=== PATIENT | female | born 1990 | race Caucasian/White ===

== ENCOUNTER 2018-02-17 08:59 | Emergency (ER) | payer MEDICAID, SELFPAY ==
[2018-02-17 09:01] VITALS: BP 132/86; PULSE 98; RESP 17; TEMP 36.1; O2SAT 95; BMI 43.0
--- NOTE | 2018-02-17 09:32 | ED.VISSUMM ---
- ER Visit Summary Date of Service: 02/17/18 Chief Complaint: Seizure-like activity History of Present Illness: The patient is a 27 F who presents for seizure-like activity that occurred during the night. Patient states she woke up from sleep at 2 AM and rolled over to look at her clock. She then had sudden flailing of all of her arms and legs that occurred for about 1 minute. She was awake during the entire episode. She is now sore in her extremities and the neck to the mid back. She has been on carbamazepine for 3 weeks for bipolar disorder. She spoke with her prescribing doctor this morning who told her to discontinue it. She denies fever, vision changes, seizure history. History of asthma, bipolar disorder, PTSD and depression. Physical Examination: Vital signs: afebrile, hemodynamically stable, no hypoxia on room air General: well nourished, well developed, in no distress Skin: warm, dry, no rash, no pallor HEENT: normocephalic and atraumatic; PERRL, EOMI, moist mucous membranes Cardiovascular: regular rate and rhythm without murmurs, no peripheral edema, 2+ pulses all distal extremities Respiratory: No increased work of breathing, lungs are clear to auscultation bilaterally, no rales, rhonchi or wheezing Abdominal: Abdomen is soft, nontender with normoactive bowel sounds, no guarding or rebound, no masses MSK: Moves all extremities, no deformities, normal strength, diffuse tenderness to the muscles of the extremities Neuro: Awake and alert, oriented ?4. No facial droop, sensation and motor function intact and symmetric Test Results: Abnormal Lab Results 02/17/18 10:15 Sodium 142 Potassium 4.1 Chloride 107 Carbon Dioxide 29.0 Anion Gap 6 BUN 12 Creatinine 0.73 Estim Creat Clear Calc 108.37 Est GFR (MDRD) Af Amer 122 Est GFR (MDRD) Non-Af 101 BUN/Creatinine Ratio 16.4 Glucose 74 Calcium 8.8 Magnesium 2.2 Total Creatine Kinase 45 Emergency Department Course and Treatment: Patient was given naproxen for muscle discomfort. Workup performed to look for any electrolyte derangements that might contribute to muscle spasms. None noted including a normal magnesium. Creatine kinase was normal, thus this is unlikely to be diffuse myositis. Patient will stop the carbamazepine as instructed by her doctor. She was given a prescription for naproxen. Patient discharged home. Treatment Plan: [] Disposition: [] Impression: Adverse medication reaction This note was generated with [employer] dictation software. It may contain incorrect words, spelling, and punctuation that were not noted in review of the chart prior to signing ED Disposition - Plan for ED Patient: Disposition: Home or Assisted Living Chief Complaint: Seizure Instructions: ED Drug React Adverse Other Prescriptions: Naproxen [Naprosyn] 500 mg PO BID PRN #20 tab Referrals: Care Physician,No Primary [NON-STAFF] - Additional Instructions: Please follow-up with your doctor that prescribes your carbamazepine to discuss alternatives. Stop taking the medication as your doctor advised. Drink plenty of fluids to stay hydrated. You may use the naproxen as needed for muscle soreness. If you have any worsening of your condition or any new concerning symptoms, please return immediately to the emergency department for another evaluation.
[2018-02-17 10:41] LABS: Anion Gap 6 (5-15); BUN 12 mg/dL (7-18); BUN/Creat Ratio 16.4 RATIO (10-20); CPK Total, Creatine Kinase 45 U/L (26-192); Calcium,Total 8.8 mg/dL (8.5-10.1); Chloride 107 mmol/L (98-107); Creatinine, Serum 0.73 mg/dL (0.55-1.02); EST Glomerular Filtration Rate 101 mL/min (>60); Est Glom Filt Rate - Afr Amer 122 mL/min (>60); Estimated Creatinine Clearance 108.37 ml/min; Glucose 74 mg/dL (74-106); Magnesium 2.2 mg/dL (1.6-2.6); Potassium 4.1 mmol/L (3.5-5.1); Sodium Level 142 mmol/L (136-145)
--- NOTE | 2018-02-17 10:47 | ED.DEP ---
ED Disposition - Plan for ED Patient: Disposition: Home or Assisted Living Chief Complaint: Seizure Instructions: ED Drug React Adverse Other Prescriptions: Naproxen [Naprosyn] 500 mg PO BID PRN #20 tab Referrals: Care Physician,No Primary [NON-STAFF] - Additional Instructions: Please follow-up with your doctor that prescribes your carbamazepine to discuss alternatives. Stop taking the medication as your doctor advised. Drink plenty of fluids to stay hydrated. You may use the naproxen as needed for muscle soreness. If you have any worsening of your condition or any new concerning symptoms, please return immediately to the emergency department for another evaluation.
[2018-02-17] MEDS: Naproxen 500 MG Tablet PO (10:52)
== END 2018-02-17 10:54 | disposition home or self-care (01) ==
PROVIDERS: Emergency Provider Emergency Medicine; Family Provider Family Medicine; PCP Family Medicine
DX: T50.995A Adverse effect of other drugs, medicaments and biological substances, initial encounter (principal); Y92.9 Unspecified place or not applicable; M79.1 Myalgia; R56.9 Unspecified convulsions
CPT/HCPCS: 36415; 80048; 82550; 83735; 99283

== ENCOUNTER 2018-03-10 21:50 | Emergency (ER) | payer MEDICAID, SELFPAY ==
[2018-03-10 21:51] VITALS: BP 111/61; PULSE 106; RESP 17; TEMP 36.2; O2SAT 96; BMI 97.2
--- NOTE | 2018-03-10 22:14 | RAD_ITS ---
STUDY: X-RAY - RIGHT FOOT CLINICAL: Female, 27 years old. Injury to the fifth toe. TECHNIQUE: 3 view(s) of the foot. COMPARISON: None. FINDINGS: Normal talus, calcaneus, and tarsal bones. Normal visualized subtalar, talonavicular, calcaneocuboid, tarsal and tarsometatarsal articulations. Normal metatarsi. Normal metatarsophalangeal joint of the great toe. Normal tibial and fibular sesamoid bones. Normal interphalangeal joint of the great toe. Normal phalanges of the great toe. Normal second through fifth metatarsophalangeal joints. Normal interphalangeal joints of the lesser toes. There is a displaced fracture of the fifth proximal phalanx. Otherwise normal phalanges of the lesser toes. The soft tissue structures are unremarkable. RAD/Foot min 3 Views IMPRESSION: Displaced fracture of the fifth proximal phalanx. Electronically Signed: Nelson Mackenzie DO at 23:06 EDT Tel [phone], Service support ,
--- NOTE | 2018-03-10 22:15 | ED.VIS.GEN ---
History of Present Illness Chief Complaint: Lower Extremity Injury Informant: Patient Onset: Today - JPTA Context: Sudden Onset - accidentally caught heavy shoe w/ her right 5th toe as she was walking by it Timing: Continuous Quality: pain Location: right 5th toe Current Severity: Severe Maximum Severity: Severe Worsened by: palpation, walking Relieved by: remaining still Associated Symptoms: no other injury, no neuro sx Past Medical History - Allergies and Home Meds Allergies/Adverse Reactions: Allergies adhesive Allergy (Verified 03/10/18 21:53) Other Primary Care Physician: Damari Pabon MD [Primary Care Provider] - Past Medical History: None Surgical History: no surgical history Lives: Spouse/ Significant Other Smoking Status: Never smoker Review of Systems Musculoskeletal: Reports: Extremity Pain - right foot pain Skin: Denies: Wounds Neurological: Denies: Weakness, Parasthesia Physical Exam Vital Signs/Narrative: Vital Signs Temp Pulse Resp BP Pulse Ox 03/10/18 21:51 97.2 F L 106 H 17 111/61 96 Inital Vital Signs reviewed: Yes General: Well nourished, Well developed, - - nad Head: Normocephalic, Atraumatic Extremities: Tenderness - w/ deformity right 5th toe -- abducted out of midline, no local opening in skin Skin: Normal color, No rash Neurological: Alert, Oriented x3, Cranial nerves II-XII grossly intact, Normal Strength, Normal Sensation Psychological: Normal affect Diagnostic/Tx/Re-eval Clinical Impression(s) from Imaging Studies Foot X-Ray 03/10/18 22:14 IMPRESSION: Displaced fracture of the fifth proximal phalanx. Electronically Signed: Nelson Mackenzie DO at 23:06 EDT Tel [phone], Service support , - Medical Decision Making X-ray shows displaced proximal phalanx fracture of the right fifth toe. She was pretreated with a [employer], declined digital block, I then distracted the toe as we performed shanita taping with nursing assistance. She tolerated well. Will be given a postop shoe and podiatry follow-up. ED Disposition - Plan for ED Patient: Disposition: Home or Assisted Living Chief Complaint: Lower Extremity Injury Diagnosis: Closed fracture of phalanx of right fifth toe Instructions: ED Fx Toe Closed Prescriptions: Hydrocodone Bitart/Apap 5-325 [[employer] 5MG-325MG] 1 tab PO Q4H PRN PRN 2 Days #10 tab PRN Reason: Pain Referrals: Rola Angeles DPM [STAFF PHYSICIAN] - 3-5 Days
--- NOTE | 2018-03-10 22:18 | ED.DCSUM_ITS ---
History of Present Illness Chief Complaint: Lower Extremity Injury Informant: Patient Onset: Today - JPTA Context: Sudden Onset - accidentally caught heavy shoe w/ her right 5th toe as she was walking by it Timing: Continuous Quality: pain Location: right 5th toe Current Severity: Severe Maximum Severity: Severe Worsened by: palpation, walking Relieved by: remaining still Associated Symptoms: no other injury, no neuro sx Past Medical History - Allergies and Home Meds Allergies/Adverse Reactions: Allergies adhesive Allergy (Verified 03/10/18 21:53) Other Primary Care Physician: Damari Pabon MD [Primary Care Provider] - Past Medical History: None Surgical History: no surgical history Lives: Spouse/ Significant Other Smoking Status: Never smoker Review of Systems Musculoskeletal: Reports: Extremity Pain - right foot pain Skin: Denies: Wounds Neurological: Denies: Weakness, Parasthesia Physical Exam Vital Signs/Narrative: Vital Signs Temp Pulse Resp BP Pulse Ox 03/10/18 21:51 97.2 F L 106 H 17 111/61 96 Inital Vital Signs reviewed: Yes General: Well nourished, Well developed, - - nad Head: Normocephalic, Atraumatic Extremities: Tenderness - w/ deformity right 5th toe -- abducted out of midline , no local opening in skin Skin: Normal color, No rash Neurological: Alert, Oriented x3, Cranial nerves II-XII grossly intact, Normal Strength, Normal Sensation Psychological: Normal affect Diagnostic/Tx/Re-eval Clinical Impression(s) from Imaging Studies Foot X-Ray 03/10/18 22:14 IMPRESSION: Displaced fracture of the fifth proximal phalanx. Electronically Signed: Nelson Mackenzie DO at 23:06 EDT Tel [phone], Service support , - Medical Decision Making X-ray shows displaced proximal phalanx fracture of the right fifth toe. She was pretreated with a [place], declined digital block, I then distracted the toe as we performed shanita taping with nursing assistance. She tolerated well. Will be given a postop shoe and podiatry follow-up. ED Disposition - Plan for ED Patient: Disposition: Home or Assisted Living Chief Complaint: Lower Extremity Injury Diagnosis: Closed fracture of phalanx of right fifth toe Instructions: ED Fx Toe Closed Prescriptions: Hydrocodone Bitart/Apap 5-325 [[place] 5MG-325MG] 1 tab PO Q4H PRN PRN 2 Days #10 tab PRN Reason: Pain Referrals: Rola Angeles DPM [STAFF PHYSICIAN] - 3-5 Days
[2018-03-10] MEDS: HYDROcodone Bitartrate/Apap 5/325 Tablet PO (22:31)
[2018-03-10 23:37] VITALS: BP 106/78; PULSE 89; RESP 18; O2SAT 97
== END 2018-03-10 23:39 | disposition home or self-care (01) ==
PROVIDERS: Emergency Provider Emergency Medicine; Family Provider Family Medicine; PCP Family Medicine
DX: S92.911A Unspecified fracture of right toe(s), initial encounter for closed fracture (principal); W23.0XXA Caught, crushed, jammed, or pinched between moving objects, initial encounter; Y93.9 Activity, unspecified; Y92.89 Other specified places as the place of occurrence of the external cause; Y99.9 Unspecified external cause status
CPT/HCPCS: 73630; 99283

== ENCOUNTER 2018-05-05 15:50 | Emergency (ER) | payer MEDICAID, SELFPAY ==
[2018-05-05 15:50] VITALS: BP 162/83; PULSE 99; RESP 18; TEMP 37.1; O2SAT 95; BMI 43.5
[2018-05-05 16:17] VITALS: BP 123/78; PULSE 92; RESP 18; O2SAT 96
[2018-05-05] MEDS: Dicyclomine 10 MG Capsule 20 MG PO (16:31)
[2018-05-05] MEDS: Loperamide 2 MG Capsule 4 MG PO (16:31)
[2018-05-05] MEDS: 0.9% Normal Saline 1,000 ML 1000 ML IV (16:32)
[2018-05-05 17:07] LABS: Anion Gap 5 (5-15); BUN 10 mg/dL (7-18); BUN/Creat Ratio 11.5 RATIO (10-20); Calcium,Total 8.3 mg/dL (8.5-10.1); Chloride 105 mmol/L (98-107); Creatinine, Serum 0.87 mg/dL (0.55-1.02); EST Glomerular Filtration Rate 82 mL/min (>60); Est Glom Filt Rate - Afr Amer 100 mL/min (>60); Estimated Creatinine Clearance 90.93 ml/min; Glucose 95 mg/dL (74-106); Potassium 3.7 mmol/L (3.5-5.1); Sodium Level 138 mmol/L (136-145)
[2018-05-05 18:24] VITALS: BP 132/78; PULSE 76; RESP 16; O2SAT 98
--- NOTE | 2018-05-05 18:28 | ED.DCSUM_ITS ---
- ER Visit Summary Date of Service: 05/05/18 Chief Complaint: Diffuse abdominal pain with diarrhea for the past 2 days. History of Present Illness: The patient is a 27 F who states the pain is sharp. The pain is diffuse but she reports the pain is worse in the epigastric and left side. She denies any blood in her stool. She noted mucus today. There is no history of inflammatory bowel disorder. She denies fever, chills night sweats. Denies weight gain or weight loss. She denies cardiac respiratory symptoms. She denies dysuria, frequency, urgency or hematuria. She reports decreased urine output. She has no other complaints. Physical Examination: Vital signs were noted and blood pressure slightly elevated 123/78. Head is atraumatic normocephalic. Pupils are equal round reactive. Extraocular muscles are intact. TMs are pearly white with landmarks noted. Nares patent with no drainage. Posterior pharynx without erythema or exudate. Uvula is midline. There is no dysphonia or dysphasia. Trachea is midline. There is no stridor with auscultation of the neck. Heart is regular without murmur, gallop or rub. S1 and S2 are normal. Lungs are clear to auscultation with good movement of air bilaterally. Abdomen is remarkable pain on palpation to light touch and resting my stethoscope on her abdomen. Bowel sounds are normal. The remainder of exam is unremarkable. Please read written note. Test Results: None Emergency Department Course and Treatment: IV normal saline wide open ?1, 20 mrem of Bentyl and 4 mg of Imodium. Patient was reassessed at 1820. She is sitting up no longer crying. She has had no diarrhea during her stay. She states the pain is better. Treatment Plan: Prescription for Bentyl and Imodium Disposition: Discharged home in stable improved condition Impression: Abdominal pain with diarrhea Mild dehydration This note was generated with [employer] dictation software. It may contain incorrect words, spelling, and punctuation that were not noted in review of the chart prior to signing ED Disposition - Plan for ED Patient: Disposition: Home or Assisted Living Chief Complaint: Abd Pain Prescriptions: Dicyclomine HCl [Bentyl] 20 mg PO TIDAC #20 cap Loperamide [Imodium] 2 mg PO UD #10 cap Referrals: Damari Pabon MD [Primary Care Provider] - 3-5 Days if not improving
--- NOTE | 2018-05-05 18:41 | ED.DCSUM_ITS ---
- ER Visit Summary Date of Service: 05/05/18 Chief Complaint: [] History of Present Illness: The patient is a 27 F [] Physical Examination: [] Test Results: [] Emergency Department Course and Treatment: [] Treatment Plan: [] Disposition: [] Impression: [] This note was generated with [employer] dictation software. It may contain incorrect words, spelling, and punctuation that were not noted in review of the chart prior to signing ED Disposition - Plan for ED Patient: Disposition: Home or Assisted Living Chief Complaint: Abd Pain Instructions: ED Diarrhea Viral Prescriptions: Dicyclomine HCl [Bentyl] 20 mg PO TIDAC #20 cap Loperamide [Imodium] 2 mg PO UD #10 cap Referrals: Damari Pabon MD [Primary Care Provider] - 3-5 Days if not improving
[2018-05-05 18:46] VITALS: BP 115/78; PULSE 89; RESP 16; O2SAT 99
== END 2018-05-05 18:49 | disposition home or self-care (01) ==
PROVIDERS: Emergency Provider Emergency Medicine; Family Provider Family Medicine; PCP Family Medicine
DX: R10.9 Unspecified abdominal pain (principal); R19.7 Diarrhea, unspecified; E86.0 Dehydration
CPT/HCPCS: 80048; 99284; J7030

== ENCOUNTER 2019-01-07 08:48 | Outpatient (RCR) | payer MEDICAID, SELFPAY ==
--- NOTE | 2019-01-07 10:51 | BH.COMM ---
Communication Note - Communication with Client Communication Note: Pt walked out of 2nd group and stated I don't think this program is for me. Met with her briefly to discuss concerns. She denies any suicidal ideations, plan, or intent. Denies any desire to be or fall asleep and not wake up. 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 Met with psychiatrist refer to his note for more information. No medication changes reported per pt. Contracts for safety. She stated that she will continue with [facility] on weekly basis. Thanked us for our time. Smiles at times and apologizes stating I just don't like being around people I guess. Nothing overwhelming occured. No poor interactions with staff or peers. Did not present as imminent danger to self due to no active suicidal ideations, plan, or intent. Future-oriented, protective factors, and verbally contract for safety. Will discharge pt from the program. Will follow up with her current outpatient providers.
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
--- NOTE | 2019-01-07 11:07 | BH.DS_ITS ---
Discharge Summary - Demographics Date of Admission:: 01/06/19 Discharge Date: 01/06/19 Presenting Problems at Admission:: Pt is a 29 year old female. Hx of PTSD, Bipolar, MDD, ADHD and Anxiety. No previous psychiatric admissions. Referred to [facility] by local [facility] support group. Reports significant anxiety, depression, and fleeting suicidal ideations for the past 2 years. Suicide attempt on 11/30/18 via OD. Disclosed this to her and vomitted up the pills. She did not seek medical attention. currently manages medications. Attends weekly sometime bi-weekly appointment at [facility] with psychiatrist and therapist. Denies active suicidal ideations, plan, or intent. Hx of two previous attempts. Long-standing fleeting suicidal ideations for the past 10 years. Protective factor is her daughter. Future-oriented. 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 Endorses increased sleep, anhedonia, isolation, avoidant behaviors, low energy, low motivation, hopelessness, and no pleasure in activities. Frequent panic attacks. Hx of trauma as a child. Denies HI or psychosis. Denies substance abuse. Discharge Diagnoses:: Persistent Depressive Disorder. PTSD by hx. ADHD by hx. Bipolar by hx Reason for Discharge:: Pt walked out of 2nd group and stated I don't think this program is for me. Met with her briefly to discuss concerns. She denies any suicidal ideations, plan, or intent. Denies any desire to be or fall asleep and not wake up. 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 Met with psychiatr ist refer to his note for more information. No medication changes reported per pt. Contracts for safety. She stated that she will continue with [facility] on weekly basis. Thanked us for our time. Smiles at times and apologizes stating I just don't like being around people I guess. Nothing overwhelming occured. No poor interactions with staff or peers. Did not present as imminent danger to self due to no active suicidal ideations, plan, or intent. Future-oriented, protective factors, and verbally contract for safety. Will discharge pt from the program. Will follow up with her current outpatient providers. - Treatment Progress During Treatment & Response: No progress noted. Poor response to treatment. Pt discharged usp through her first day. Stating I don't think groups are for me. Issues Still to be Addressed:: Depression, anxiety, fleeting suicidal ideations, poor sleep, anhedonia, isolative behaviors, avoidance, panic attacks, and feelings of hopelessness. Discharge Recommendations/Instructions:: Recommended that pt continue with IOP level of care, however pt declines. Pt will continue with [facility] were she sees Dr. Godoy and has a therapist. Pt meets with her therapist weekly with appointment for next week. Discharge Handout: Complete Discharge Handout with client on aftercare options and continuity of care.
--- NOTE | 2019-01-07 12:01 | BH.DR.ITP ---
Initial Treatment Plan - Patient Information Visit Information: ADMISSION DATE: 01/07/19 EXPECTED LOS: 4-6 weeks Diagnoses:: Persistent disorder; anxiety disorder unspecified; personality disorder - Problems/Symptoms Problem #1:: depression Symptom:: low mood, chronic suicidality; anhedonia, low energy Problem #2:: anxiety Symptom:: Becomes anxious interacting with people; low stress tolerance Problem #3:: personality disorder Symptom:: moodiness, anger problems; abandonment fears, impulsivity
== END 2019-01-07 14:08 | disposition home or self-care (01) ==
LOC: BHIOP 08:48
PROVIDERS: Family Provider Family Medicine; PCP Family Medicine; Referring Provider Psychiatry & Neurology Psychiatry; Visit Provider Psychiatry & Neurology Psychiatry
DX: F34.1 Dysthymic disorder (principal); F43.10 Post-traumatic stress disorder, unspecified; F90.9 Attention-deficit hyperactivity disorder, unspecified type; E66.9 Obesity, unspecified; F60.9 Personality disorder, unspecified; R45.851 Suicidal ideations; Z79.899 Other long term (current) drug therapy
CPT/HCPCS: 99204

== ENCOUNTER 2019-02-27 16:29 | Emergency (ER) | payer MEDICAID, SELFPAY ==
[2019-02-27 16:30] VITALS: BP 114/85; PULSE 98; RESP 16; TEMP 36.4; O2SAT 95; BMI 49.0
--- NOTE | 2019-02-27 17:12 | ED.DCSUM_ITS ---
History of Present Illness Chief Complaint: Suicidal Detail of Chief Complaint: Depression, suicidal ideation Informant: Patient, Significant Other Onset: - - Long-standing, but worsened recently. Current Severity: Mild Maximum Severity: Moderate Worsened by: Situational factors - Financial and family stressors Associated Symptoms: Depressed, Suicidal Thoughts Specific plan (suicidal thought): Overdose on pills Narrative: Patient presents with her with suicidal ideation. She states she has had long-standing suicidal thoughts since the age of 14. She has been seen by a counselor and P[facility], but has not been following up recently. She has had several increased stressors recently. Patient states today she had several pill bottles in her hand. She threw them at her significant other asking him to put them away where she could not get to them because she could not trust herself with him. He brought her to the emergency room for further treatment. Past Medical History - Allergies and Home Meds Allergies/Adverse Reactions: Allergies adhesive Allergy (Verified 02/27/19 16:30) Other Primary Care Physician: Damari Pabon MD [Primary Care Provider] - Prior records reviewed: Yes Past Medical History: - - Reviewed Surgical History: no surgical history Lives: Spouse/ Significant Other Smoking Status: Never smoker Drugs: None Review of Systems General: Denies: Chills, Fever ENT: Denies: Bilateral ear pain Cardiovascular: Denies: Chest pain Respiratory: Denies: Dyspnea, Cough Gastrointestinal: Denies: Abdominal pain, Nausea, Vomiting Genitourinary: Denies: Dysuria Musculoskeletal: Denies: Myalgias, Arthralgias Neurological: Denies: Headache Psych: Reports: Depression, Suicidal thoughts Hematologic: Denies: Easy bruising Allergy: Denies: Uticaria Physical Exam Vital Signs/Narrative: Vital Signs Temp Pulse Resp BP Pulse Ox 02/27/19 16:30 97.6 F L 98 16 114/85 H 95 Inital Vital Signs reviewed: Yes General: Well nourished, Well developed Head: Normocephalic ENT: Moist mucous membranes Cardiovascular: Regular rate, Regular rhythm Respiratory: No distress, CTA bilaterally Abdomen: Soft, Nontender Extremities: Nontender Skin: Normal color, No rash Neurological: Alert, Oriented x3 Psych: Normal Speech Pattern Diagnostic/Tx/Re-eval Laboratory Results 02/27/19 02/27/19 02/27/19 17:00 17:22 17:22 WBC 10.4 RBC 4.50 Hgb 14.4 Hct 42.0 MCV 93.3 MCH 32.0 MCHC 34.3 RDW Std Deviation 41.4 RDW Coeff of Donald 12.0 Plt Count 241 MPV 9.8 Immature Gran % (Auto) 0.400 Neut % (Auto) 63.7 Lymph % (Auto) 25.2 [place] % (Auto) 6.2 Eos % (Auto) 3.8 Baso % (Auto) 0.7 Absolute Neuts (auto) 6.7 Absolute Lymphs (auto) 2.63 Absolute Nucleated RBC 0.00 Nucleated RBC % 0 Sodium 140 Potassium 4.0 Chloride 109 H Carbon Dioxide 26.0 Anion Gap 5 BUN 16 Creatinine 0.88 Estim Creat Clear Calc 89.10 Est GFR (MDRD) Af Amer 98 Est GFR (MDRD) Non-Af 81 BUN/Creatinine Ratio 18.2 Glucose 107 H Calcium 8.5 Serum , Qual Urine Opiates Screen NEGATIVE Urine Methadone Screen NEGATIVE Ur Barbiturates Screen NEGATIVE Ur Phencyclidine Scrn NEGATIVE Ur Amphetamines Screen NEGATIVE U Methamphetamin-MDMA NEGATIVE U Benzodiazepines Scrn NEGATIVE Urine Cocaine Screen NEGATIVE U Cannabinoids Screen POSITIVE H Ur Drug Screen Comment Ethyl Alcohol 02/27/19 02/27/19 17:22 17:22 WBC RBC Hgb Hct MCV MCH MCHC RDW Std Deviation RDW Coeff of Donald Plt Count MPV Immature Gran % (Auto) Neut % (Auto) Lymph % (Auto) [place] % (Auto) Eos % (Auto) Baso % (Auto) Absolute Neuts (auto) Absolute Lymphs (auto) Absolute Nucleated RBC Nucleated RBC % Sodium Potassium Chloride Carbon Dioxide Anion Gap BUN Creatinine Estim Creat Clear Calc Est GFR (MDRD) Af Amer Est GFR (MDRD) Non-Af BUN/Creatinine Ratio Glucose Calcium Serum , Qual NEGATIVE Urine Opiates Screen Urine Methadone Screen Ur Barbiturates Screen Ur Phencyclidine Scrn Ur Amphetamines Screen U Methamphetamin-MDMA U Benzodiazepines Scrn Urine Cocaine Screen U Cannabinoids Screen Ur Drug Screen Comment Ethyl Alcohol < 3.0 Patient has been alert and cooperative throughout her ED stay. She was seen by Linette from crisis. She initially had felt the patient could contract for safety and follow-up closely. I asked her to speak with the patient's and have him agree to the plan and be sure that he could ensure her safety. He initially stated that he felt she should go to a [facility] for stabilization. At that point information was faxed to try to get her admitted. In the meantime patient and have had discussion and patient's now states that he feels sending her somewhere would make her worse. He has planned now to take the next week off of work. He will be with her 02/03 and he states both to me as well as to the nurse that he will take legal responsibility for anything that will happen. Patient has promised me that she will go to him with any concerns that she is feeling worse and they will return. They will call her psychiatrist at 9 AM tomorrow morning when they open for close follow-up. Disposition: Home ED Disposition - Plan for ED Patient: Disposition: Home or Assisted Living Instructions: Depression Referrals: Damari Pabon MD [Primary Care Provider] - Additional Instructions: Follow-up with your psychiatrist as soon as possible.
[2019-02-27 17:34] LABS: Absolute Lymphocyte Count 2.63 X10^3/uL (0.83-4.51); Absolute Neutrophil Count 6.7 X10^3/uL (2.0-7.7); Basophil# 0.07 X10^3/uL; Basophil% 0.7 % (0-1); Eosinophils% 3.8 % (0-5); Hemoglobin 14.4 g/dL (12.0-15.0); Lymphocyte # 2.63 X10^3/ul (4.0); Lymphocyte % 25.2 % (19-41); Mean Corp Hgb Conc 34.3 g/dL (32-36); Mean Corpuscular Volume 93.3 fL (81-99); Mean Platelet Vol. 9.8 fl (6.2-12.0); Monocyte# 0.65 X10^3/uL; Monocyte% 6.2 % (0-10); NRBC Flagged by Analyzer 0 % (0-5); Neutrophil # 6.65 X10^3/uL (2.7-7.7); Neutrophil % 63.7 % (47-70); Platelet Count 241 K/mm3 (150-450); RBC Distribution Width SD 41.4 fl (35.1-43.9); White Blood Count 10.4 K/mm3 (4.4-11.0)
[2019-02-27 17:52] LABS: Amphetamine Urine VISTA NEGATIVE (<1000 ng/mL); Barbiturate Urine VISTA NEGATIVE (< 200 ng/mL); Benzodiazepine Urine VISTA NEGATIVE (< 200 ng/mL); Cocaine Urine VISTA NEGATIVE (< 300 ng/mL); Ecstacy Urine VISTA NEGATIVE (< 500 ng/mL); Methadone Urine VISTA NEGATIVE (< 300 ng/mL); PCP Urine VISTA NEGATIVE (< 25 ng/mL); THC Urine VISTA POSITIVE (< 50 ng/mL); Vista UDS pH Range 6
[2019-02-27 18:01] LABS: Internal QC Validated? YES +Cl - CLEAR BKGD; Pregnancy, Serum, hCG Quali. NEGATIVE Negative
[2019-02-27 18:03] LABS: Alcohol, Blood (Medical)-Serum < 3.0 mg/dL
[2019-02-27 18:04] LABS: Anion Gap 5 (5-15); BUN 16 mg/dL (7-18); BUN/Creat Ratio 18.2 RATIO (10-20); Calcium,Total 8.5 mg/dL (8.5-10.1); Chloride 109 mmol/L (98-107); Creatinine, Serum 0.88 mg/dL (0.55-1.02); EST Glomerular Filtration Rate 81 mL/min (>60); Est Glom Filt Rate - Afr Amer 98 mL/min (>60); Glucose 107 mg/dL (74-106); Sodium Level 140 mmol/L (136-145)
[2019-02-27 18:29] VITALS: RESP 16
--- NOTE | 2019-02-27 19:02 | ED.RN ---
PT TO BE D/C WITH SAFETY PLAN. SITTER D/C.
[2019-02-27 19:09] VITALS: RESP 18
[2019-02-27] MEDS: Acetaminophen 500 MG Tablet 1000 MG PO (19:33)
[2019-02-27 20:06] VITALS: BP 108/85; PULSE 70; RESP 18; O2SAT 100
--- NOTE | 2019-02-27 20:38 | ED.RN ---
SPOUSE PULLS ME ASIDE STATING THAT HE FEELS ADMISSION WILL NOT PROVIDE A THERAPEUTIC ENVIRONMENT. SPOUSE STATES HE IS GOING TO TAKE A WEEK OFF WORK AND ENROLL HER MOM INTO HELPING HIM KEEP HER SAFE AND TAKE HER TO PSYCH APPTS. PT HAS SAFETY PLAN IN FRONT OF HER. TALKED WITH DR. WEAVER WHO AGREES IF TAKES RESPONSIBILITY, SHE CAN GO HOME. CALL PLACED WITH CRISIS CENTER TO TALK WITH FRANCY OR OTHER SW FOR ALTERNATIVE PLAN.
--- NOTE | 2019-02-27 20:54 | ED.RN ---
Spoke with Stefanie from Crisis who has not gotten hand off from Linette. Explained the situation to Stefanie, Dr. Tuttle agrees that S/O can take responsibility for pts safety and get her to appts. Stefanie stated has final decision making. Stefanie is calling Esmer Neumann to cancel admission.
[2019-02-27 21:12] VITALS: PULSE 84; RESP 16; O2SAT 100
--- NOTE | 2019-02-27 21:12 | ED.RN ---
Sitter discontinued as pt has discharge instructions. All questions were answered, no further concerns.
== END 2019-02-27 21:13 | disposition home or self-care (01) ==
PROVIDERS: Emergency Provider Emergency Medicine; Family Provider Family Medicine; PCP Family Medicine
DX: F32.9 Major depressive disorder, single episode, unspecified (principal); R45.851 Suicidal ideations; Z79.899 Other long term (current) drug therapy
CPT/HCPCS: 80048; 80307; 80320; 84703; 85025; 99284; G0480

== ENCOUNTER 2020-02-16 14:00 | Outpatient (RCR) | payer MEDICAID, SELFPAY ==
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
--- NOTE | 2020-02-16 14:49 | BH.MTP_ITS ---
Master Treatment Plan - Patient Information Program Physician:: Dr. Sudha Zepeda Primary Therapist:: MO Dinh - Psychiatric Diagnoses Psychiatric Diagnoses:: Persistent depressive disorder (F 34.1); cannot rule out bipolar, NOS; generalized anxiety disorder; PTSD; ADHD by history Diagnosis Code(s):: F 34.1 - Estimated LOS Estimated LOS (in weeks):: 6 Problem/Goal #1 - Problem/Goal #1 Stated Goal:: Client will reduce depressive symptoms, isolation, and anhedonia due to Major Depressive Disorder through Intensive Outpatient Program. Description of Barriers: Pt's negative core beliefs, distorted thoughts, hopelessness, anhedonia, poor boundaries and communication, and hx of chronic huggins icidal ideation could be potential barriers to treatment. Functional Impact: The patient is a 29-year-old female with a history of PTSD, bipolar, depression, ADD and anxiety who referred herself to the [facility] Behavioral Health IOP program following a suicide attempt on January 20, 2020. Pt reports at time of the attempt she had been struggling to cope with her indicating he wanted to end the marriage. Reports attempting to overdose on her psychiatric medications and then phoned her therapist after her prevented her from taking even more medication. The police and crisis came to her house, but pt was not taken to the emergency room and she was not admitted to any psychiatric unit. Denies current active SI, plan or intent. Denies self-harming. Denies HI. Denies delusions or hallucinations. Pt was previously admitted to IOP program in December 2018 for 1 day however did not complete the program. Reports current stressors impacting her mood and contributing to ongoing depressive sx include: the end of her marriage, finances, lack of employment, and managing her parenting responsibilities alone. Indicated current stressors have impacted ability to function at baseline. At time of admission, pt endorsing the following sx: hopelessness, sadness, apathy, anhedonia, decreased appetite, increased sleep, crying spells, low energy, reduced concentration, and increased negative thoughts. Goal Relevant Strengths/Supports: Pt is intelligent, open to treatment, has prior counseling experience, and expresses motivation to get better. - Objectives Objective #1 Stated Objective: Client will identify 2-3 depressive thinking patterns and be able to challenge and replace negative thoughts. Interventions: Therapist will assist client in identifying depressive thinking patterns and provide client with resources to help teach client strategies in defeating negative thoughts. Discharge Criteria: Client will have met this objective when can identify at least two depressive thinking patterns and be able to defeat depressive and suicidal thoughts. Target Date: 03/29/20 Review Date: 03/15/20 Objective #2 Stated Objective: Pt will decrease depressive symptoms AEB pt?s score on the DSM 5 cross-cutting measure and improve pt?s daily functioning. Interventions: Through groups and individual therapy, pt will be provided with education on cognitive distortions, mistaken beliefs, and identifying and combating negative self-talk. Therapist will assist pt with getting back into the activities she once enjoyed as well as increasing healthy coping strategies. Discharge Criteria: Pt will have met this goal when pt?s score on the DSM 5 cross cutting measure for depression has been decreased and per pt?s report daily functioning has improved. Target Date: 03/29/20 Review Date: 03/15/20 Problem/Goal #2 - Problem/Goal #2 Stated Goal:: Stabilize anxiety level while increasing ability to function on daily basis. Description of Barriers: Pt's negative core beliefs, distorted thoughts, hopelessness, anhedonia, poor boundaries and communication, and hx of chronic suicidal ideation could be potential barriers to treatment. Functional Impact: The patient is a 29-year-old female with a history of PTSD, bipolar, depression, ADD and anxiety who referred herself to the [facility] Behavioral Health IOP program following a suicide attempt on January 20, 2020. Pt reports at time of the attempt she had been struggling to cope with her indicating he wanted to end the marriage. Reports attempting to ov erdose on her psychiatric medications and then phoned her therapist after her prevented her from taking even more medication. The police and crisis came to her house, but pt was not taken to the emergency room and she was not admitted to any psychiatric unit. Denies current active SI, plan or intent. Denies self-harming. Denies HI. Denies delusions or hallucinations. Pt was previously admitted to IOP program in December 2018 for 1 day however did not complete the program. Reports current stressors impacting her mood and contributing to ongoing depressive sx include: the end of her marriage, finances, lack of employment, and managing her parenting responsibilities alone. Indicated current stressors have impacted ability to function at baseline. At time of admission, pt endorsing the following sx: hopelessness, sadness, apathy, anhedonia, decreased appetite, increased sleep, crying spells, low energy, reduced concentration, and increased negative thoughts. Goal Relevant Strengths/Supports: Pt is intelligent, open to treatment, has prior counseling experience, and expresses motivation to get better. - Objectives Objective #1 Stated Objective: Client will learn and utilize 2-3 healthy coping strategies to manage anxious symptoms. Interventions: Therapist will assist client in learning internal coping strategies to manage anxious symptoms, along with helping client identify triggers. Discharge Criteria: Client will have achieved this goal when can consistently utilize at least 2 healthy coping strategies to manage anxious symptoms. Target Date: 03/29/20 Review Date: 03/15/20 Objective #2 Stated Objective: Pt will decrease anxious symptoms AEB pt?s score on the DSM 5 cross-cutting measure improve pt?s daily functioning. Interventions: Through groups and individual therapy, pt will be provided education about anxiety?s impact on body and common physiological reaction to anxiety. Therapist will teach pt appropriate breathing techniques and build healthy coping skills to manage daily anxieties. Discharge Criteria: Pt will have met this goal when pt?s score on the DSM 5 cross cutting measure for anxiety has been decreased and per pt?s report daily functioning has improved. Target Date: 03/29/20 Review Date: 03/15/20
--- NOTE | 2020-02-16 16:47 | BH.MDN_ITS ---
Multi-Disciplinary Note - Note 60-min Individual Time Started:: 14:30 Date: 02/16/20 Purpose of session/treatment goals addressed:: The purpose of this session was to gather information on client's current stressors and symptoms since intake assessment, as well as discuss client treatment goals. Another goal was to build rapport and complete intake paperwork, including CSSR assessment. Eye Contact:: Good, Other - tearful throughout Motor Activity:: Appropriate Appearance:: Casual Speech:: Appropriate Mood:: Anxious, Depressed Affect:: Congruent Thoughts:: Linear, Logical, No evidence of hallucinations/delusions noted Staff Interventions:: Therapist used active listening and open-ended questions to explore client's current symptoms and stressors, as well as treatment goals and expectations. Provided supportive feedback and empathic responses as client discussed current struggles and areas of concern. Therapist used SD via strengths perspective to build rapport and help client identify personal strengths and areas of resilience. Therapist aided client in completion of intake paperwork and further assessed for risk utilizing the CSSR assessment. Client Response:: Client responded well to session, open to meeting with therapist. Client shared that she was self-referred to the [facility] program due to a recent suicide attempt on 01/20/20 following difficulties in coping after client?s from her the previous month. Client reports that at the time of attempt she took a mixture of her psych medications in an attempt to overdose and disclosed this to her outpatient provider who then contacted police. Client denies receiving medical treatment at that time but was followed- up with by CPS as her 7-year-old daughter had been present at time of attempt. Client has a hx of prior suicide attempts and chronic suicidal ideation, with her first attempt occurring around age 16 when client attempted to hang herself. She reported that she has struggled with depression and anxiety for much of her life; however, found symptoms of depression to be unmanageable after her left in December. Client indicated that she has not experienced any active thoughts of suicide or self-harming since the attempt, though indicated passive thoughts of not wanting to be alive without plan or intent. Client is currently connected to counseling and psychiatry services, noting that she has had some positive results with therapy in the past and meets with her outpatient provider at the [facility] in [place] ?every other day?. Additional stressors include completing an online program to receive her Master?s degree in higher education, finances, limited supports, and caregiving responsibilities for her daughter. Client reported that in the past two months she has been experiencing an increase in mental health symptoms including: more intense emotions, negative thoughts, hopelessness, crying spells, isolation, anhedonia, low energy, low motivation, decreased sleep, and poor appetite. Client reports she has lost 22 pounds since her left. She reports that her daughter is a major protective factor and one of the primary reasons she wants to take steps towards improving her mental health. Client discussed that she would like to work on identifying warning signs and triggers for depression, developing healthy coping skills for managing her mental health symptoms and prevent escalating to point of crisis, re-engage with supports, and increase her understanding of the impact of trauma on mental health management. Reports some anxiety about beginning to engage in the group setting but was receptive of beginning IOP groups on Thursday following an additional individual session to work on easing any first day anxieties. Risks/Concerns:: Denies any active suicidal ideations, plan, or intent as of this date, 02/16/20. Future oriented and setting goals for IOP as well as her future. Therapist worked with pt to complete [facility] Suicide Screening Assessment. No significant changes since pre-admission screening. Moderate risk for suicide given pt hx of prior attempts as well as recent attempt on 01/20/20, and chronic passive SI. Denies suicidal ideations since her attempt, though reports passive thoughts of not wanting to be alive. Reports hx of suicidal thoughts since she was young. Reports passive thoughts but denies active thoughts, plan, or intent since. Reports a hx of 4 additional attempts. Denies hx of self-harming behaviors. Protective factors. Future-oriented. Progress Toward Goals/Plan:: Client's first day in IOP. Client presents with an anxious and depressed mood, report of frequent ruminations, crying spells, isolation, and intrusive negative thoughts. Client stated she continues to struggle with hopelessness, low energy, and negative self-talk. Will continue IOP tx to prevent decompensation, reduce anxiety and depression, and improve daily functioning. Time Stopped:: 15:24
--- NOTE | 2020-02-21 11:15 | BH.MDN ---
Multi-Disciplinary Note - Note 60-min Individual Time Started:: 09:05 Date: 02/21/20 Purpose of session/treatment goals addressed:: The purpose of this session was to address current stressors, symptoms, and anxieties about beginning engagement in the group setting. Another goal was to provide psychoeducation on cycle of depression and help client gain insight to her thoughts and behaviors that may be reinforcing depressive symptoms. Other topics included; thought challenging and opposite action. Eye Contact:: Good, Other - tearful throughout Motor Activity:: Appropriate Appearance:: Casual Speech:: Appropriate Mood:: Anxious, Depressed Affect:: Congruent Thoughts:: Linear, Logical, No evidence of hallucinations/delusions noted Staff Interventions:: Therapist used active listening and open-ended questions to explore client's current symptoms, stressors, and anxieties. Therapist provided emotional support and gave client a safe place to process her feelings about beginning IOP group as well as continuing to grieve the end of her marriage. Therapist provided psychoeducation on cycle of depression and aided client in identifying behaviors and thoughts reinforcing current depressive symptoms. Therapist reviewed with client concept of locus of control and where she may have control regarding her current situation. Therapist gently challenged client's distorted thoughts reinforcing feelings of hopelessness and desire to use sleep as a primary means of coping. Therapist encouraged client to practice opposite action and self-care today in order to break depressive cycles. Client Response:: Client responded well to session, open to meeting with therapist. Client expressed feeling anxious when she entered session as she is still nervous to begin group therapy. Discussed that she has been struggling to focus and feeling overwhelmed in general and fears this will make it hard to engage in group. Client became tearful and indicated that she has found it difficult to motivate herself to do much outside of sleep since her moved out 2 months ago. Shared that she has often been sleeping in until 11am and then spending a few hours with her daughter before reverting to sleeping for the remainder of the day. Client expressed feelings of hopelessness, grief, numbness, and disappointment about the relationship ending. Went on to note often thinking about how ?he should be here? or ruminating of thoughts of ?I shouldn?t have smothered him? or ?I wish he would just talk to me?. Client receptive of psychoeducation on depressive cycle and common thoughts, feelings, and behaviors that contribute to maintaining depression. Able to identify that her own thoughts about the relationship and herself often reinforce negative emotions and make it difficult to enjoy daily activities, which often results in client returning to sleep as her primary means of coping. Client worked with therapist to challenge negative thoughts and identify areas she views as personal strengths/positives which included: her daughter, her education, willingness to seek helps, and her supports. Client was additionally receptive of discussion reviewing opposite action for reducing current behaviors which reinforce depression and begin to take steps towards increasing engagement in activities she used to enjoy. Client willing to explore possible activities she could do this afternoon to prevent from sleeping a majority of the day. Identified going to visit her mother as well as making a meal with her daughter. Risks/Concerns:: Client denies any active suicidal ideations, plan, or intent as of 02/21/20. Client is future oriented and continues to be motivated for treatment. Daughter is a protective factor. Progress Toward Goals/Plan:: Client is making limited progress towards treatment goals as this was her second individual session, and client reported still feeling too anxious to begin engagement in group setting. Willing to attempt to use calming skills discussed to do so , 02/23/20. Client continues to endorse a depressed mood, crying spells, sleeping much of the day, hopelessness, anhedonia, and lack of energy. Client also struggles with distorted thoughts that cause client to feel like she is a bad mother and cannot take care of herself independently which reinforces difficulties in overcoming recent breakup. Will continue IOP tx to prevent further decompensation, improve mood stability, and reduce intensity of symptoms. Time Stopped:: 10:18
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
--- NOTE | 2020-02-22 13:35 | BH.PSY.EVA_ITS ---
Initial Treatment Plan - Patient Information Visit Information: ADMISSION DATE: EXPECTED LOS: 4-6 weeks - Problems/Symptoms Problem #1:: Depression Symptom:: Sadness, anhedonia, low motivation, decreased energy and concentratio n, fleeting passive suicidal ideation Problem #2:: Anxiety Symptom:: worry, rumination, some avoidance
--- NOTE | 2020-02-23 08:06 | BH.MDN ---
Multi-Disciplinary Note - Note 30-min Individual Time Started:: 09:20 Date: 02/23/20 Purpose of session/treatment goals addressed:: Reviewed progress in IOP. Assessed current barriers and behaviors contributing to ongoing depression and anxiety. Reviewed strategies for improving healthy boundaries. Eye Contact:: Good Motor Activity:: Appropriate Appearance:: Casual Speech:: Appropriate Mood:: Anxious, Depressed Affect:: Full Thoughts:: Linear, Logical, No evidence of hallucinations/delusions noted Staff Interventions:: thought challenging, motivational interviewing, psychoeducation on: - healthy boundary setting, CBT techniques, other - worked with pt to create a pros/cons list of reasons to maintain healthy boundaries with ex Client Response:: Pt receptive of session, engaged throughout. Discussed feeling angry and disappointed in herself as she attempted to reach out to her estranged . Shared this had gone poorly and he had ?made it clear he doesn?t want anything to do with me?. Pt acknowledged knowing at the time this was probably not a good idea for her mental health, but continues to struggle with a desire for closure and hope the relationship can be repaired. Noted that the exchange had solidified for client that this would not happen. Expressed using healthy skills to cope, such as doing laundry, rather than sleeping to avoid her emotions. Shared feeling angry at the time which she believes is what encouraged her to do something rather than sleep. Discussed ways to continue to harness her emotions in healthy ways such as cleaning or working on school work. Reviewed with pt the importance of establishing healthy boundaries with herself in order to prevent continued unhealthy exposure to her ex. Discussed knowing reaching back out would have harmful effects on her ability to heal and move forward. Noted plans to review a list of reasons why the relationship was unhealthy and the negative impacts going back could have on her mental health progress. Risks/Concerns:: No risks or concerns noted. Progress Toward Goals/Plan:: Progress remans variable. Pt notes continued engagement in behaviors such as reaching out to her ex, despite understanding the harmful effects this has on her ability to heal and move forward. Did however indicate plans to improve boundaries and discussed utilizing skills to aid in coping. Continue to struggle with being engaged in treatment outside the individual setting. Reports that she is benefiting from IOP, but remains anxious about being in the groups. She continues to be impulsive at times and continues to report racing thoughts. Will continue in IOP to maintain safety, prevent decompensation, and increase healthy coping skills. Time Stopped:: 09:52
--- NOTE | 2020-02-23 10:12 | BH.SGPN.GN ---
Behaviors/Verbalizations/Mental Status: []Client alert and oriented, casually dressed. Eye contact fair to good. Motor activity appropriate. Speech within normal limits. Affect congruent, though difficult to assess as wearing mask per COVID-19 protocol. mood depressed, anxious. Thoughts linear, logical, no signs of hallucinations or delusions. Client Response/Progress/Benefit: []Client first day in IOP groups. She remained engaged throughout session AEB providing input to discussion and taking notes throughout. Connected with discussion on how coping with external crises by using unhealthy coping skills could result in a personal crisis. Client noted that although it is difficult, ?if you don?t learn to control your response, you won?t end up feeling any better?. Group reported that it is important to have awareness of warning signs which can prevent reaching crisis point. Group identified warning signs for crisis and client completed the personal warning signs worksheet. Client identified personal crisis warning signs to include: isolating/avoiding others, crying more often, and increased sleep. Benefited by increasing awareness of crisis and personal warning signs. Progress noted in client increased engagement and insight into own mental health warning signs. Will continue IOP tx to increase healthy coping, improve mood stability, and prevent decompensation. Narrative Note: []
--- NOTE | 2020-02-23 11:11 | BH.SGPN.GN ---
Behaviors/Verbalizations/Mental Status: []Client alert and oriented, casually dressed and groomed. Eye contact fair. Motor activity appropriate. Speech within normal limits. Affect unable to gather due to client wearing a mask for COVID-19 protocol. Mood dysthymic and anxious. Thoughts linear, logical, no signs of hallucinations or delusions. Client Response/Progress/Benefit: []Client responded well to session as evidenced by client listening attentively to others and providing input throughout session. Client identified her warning signs for crisis and gained further awareness of earliest warning signs. Client used the warning signs: loss of motivation, negative thinking, and mood swings to create her crisis plan. Client created a crisis action plan to help client better manage warning signs for crisis. Client?s plan included: opposite action, trying a hobby, talking a walk, changing her environment, creating small goals, positive self-talk, asking for help, and asking herself if this is a normal reaction. Client also recognizes that she can ask outside support for help. Client appeared to benefit from creating a crisis action plan and increasing self-awareness. Client to continue IOP tx to prevent decompensation, learn healthy coping skills, and improve mood stability. Narrative Note: []
--- NOTE | 2020-02-28 09:05 | BH.SGPN.GN ---
Behaviors/Verbalizations/Mental Status: [] Eye contact is good. Motor activity is appropriate. Appearance is casual. Speech is Appropriate. Mood is anxious. Affect is congruent. Thoughts are linear and logical. No evidence of psychosis. Reviewed daily check in sheet and no reports of suicidal ideations or intent. Client Response/Progress/Benefit: [] Pt participated at times during the group discussion. Emotion for today is agitated. Shared several psychosocial stressors including conflict with ex, school, and desire to find employment. She elaborated on her stressors and how they impact her mental health. Primary method to deal with emotions and stress is to escape typically through sleep or video games. Not utilizing any healthy coping skills or thought challenging. Poor coping skills. Blames her emotions and stressors on external factors which she has no control (school, ex). Limited progress noted. Will continue in IOP to maintain safety, increase coping, prevent decompensation, and improve functioning. Benefited from group support and encouragement. Narrative Note: []
--- NOTE | 2020-02-28 10:16 | BH.SGPN.GN ---
Behaviors/Verbalizations/Mental Status: []Client alert and oriented, casual dress, hygiene tended to. Eye contact fair. Motor activity appropriate. Speech within normal limits. Affect constricted, mood anxious. Thoughts linear, logical, no signs of hallucinations or delusions. Client Response/Progress/Benefit: []Engaged participant AEB pt providing input throughout session, listening attentively to others and taking notes. Engaged during psychoeducation portion reviewing fixed mindset. Pt worked with group to identify how a fixed mindset can impact our mental health which included: decreased motivation, giving up when faced with a setback, not asking for help, low self-esteem, and staying stuck. Seemed to connect with others when discussing example fixed mindset thoughts. Pt identified one fixed thought she has is, Why is this happening to me? Pt did well to recognize that this fixed thought leads to self-isolation. Seemed to benefit from group by increasing awareness of how one's mindset impacts mental health. Pt to continue IOP level of care to increase healthy coping skills, maintain safety, and prevent decompensation. Narrative Note: []
--- NOTE | 2020-02-28 11:16 | BH.SGPN.GN ---
Behaviors/Verbalizations/Mental Status: []Client alert and oriented, casually dressed and groomed. Eye contact good. Motor activity appropriate. Speech within normal limits, quiet. Affect unable to gather due to client wearing a mask as part of COVID-19 protocol. mood anxious and depressed. Thoughts linear, logical, no signs of hallucinations or delusions. Client Response/Progress/Benefit: [] Client actively listening during discussion and taking notes throughout. Client did well to work with group on identifying characteristics and benefits of adopting a growth mindset, indicating that this would improve overall motivation levels. Client taking notes during example activity in which participants helped reframe example fixed thoughts into growth mindset thoughts. Client worked to apply skills learned to reframe her own personal fixed thoughts, though appeared to struggle some with using skills on own thoughts. Reframed thought of ?You will always be depressed? with growth mindset thought of ?It?s okay to feel down sometime?. Noted that this would aid in improving levels of hope. Benefitted from discussing benefits of growth mindset and brainstorming strategies for prompting growth-mindset. Client progress noted in improved engagement in group, however continues to struggle with active skill application and boundary setting. Will continue IOP tx to continue to promote active thought challenging and skill application as well as improve healthy boundary setting. Narrative Note: []
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
--- NOTE | 2020-03-06 11:24 | BH.COMM_ITS ---
Communication Note - Communication with Client Communication Note: Pt scheduled for [facility] group and individual sessions on this date. However, upon arrival noted that she had been in contact with someone who had previously been diagnosed with the COVID-19 virus. Per infection control protocol, pt was advised to return home and contact the health dept. for further instruction. Pt inforned this therapist following contact with local health dept. and reports that she was cleared as it had been a long enough period of time since her potential exposure to COVID-19 virus and is not deemed to be an immediate health risk to self or others. Pt reports plans to return to [facility] tx on , 03/08/20.
--- NOTE | 2020-03-08 10:15 | BH.SGPN.GN ---
Behaviors/Verbalizations/Mental Status: []Client alert and oriented, neatly dressed and groomed. Eye contact good. Motor activity appropriate. Speech within normal limits. Affect unable to gather due to wearing a mask for COVID-19 protocol, mood irritable and depressed. Thoughts linear, logical, no signs of hallucinations or delusions. Client Response/Progress/Benefit: []Client responded well to session, engaged and participating in group discussion. Client listened to the discussion of the quote and how ruminating reinforces staying stuck. Client listened as the group identified the importance of change which included: growth, less anxiety and depression, confidence, and happiness. Group also identified barriers keeping clients from changing which included: fear of the unknown, fear of failure, comfort, and habit. Participated in the discussion of the different zones of change including the pros and cons of each. Client shared ?what if I like being in my comfort zone and don?t want to change.? Group attempted to help client see the consequences of staying in one?s comfort zone long-term, but client reported ?I still don?t want to.? Appeared to benefit from gaining awareness of the benefits of change as well as the different zones of change. Will continue IOP tx to prevent decompensation. Client currently reporting low motivation to change will likely hinder client?s progress. Narrative Note: []
--- NOTE | 2020-03-08 11:13 | BH.SGPN.GN ---
Behaviors/Verbalizations/Mental Status: []Client alert and oriented, casually dressed and groomed. Eye contact fair to good. Motor activity appropriate. Speech within normal limits. Affect unable to gather due to client wearing a mask per COVID-19 protocol, though appears congruent, mood anxious, agitated, depressed. Thoughts linear, logical, no signs of hallucinations or delusions. Client Response/Progress/Benefit: []Pt actively listening and attentive throughout AEB contributing some to discussion and taking notes, though remained a mostly passive participant. Attentive as group discussed ?comfort zone? of behavior and potential costs as well as benefits of remaining in the comfort zone. Did well to listen as the group worked on identifying potential mental health costs of remaining in one?s comfort zone which included: staying stuck, lack of personal growth, resistance to change, disengagement, and lack of motivation. Pt reports that she struggles to step out of her comfort zone and indicated not always wanting to. Struggle with identifying potential benefits of stepping out of her comfort zone; however, was willing to share small steps she can take to do so. These included: going for a walk in the morning and making time to read more often. Attentive during discussion reviewing importance of accountability in following through with identified goals. Appeared to benefit from psychoeducation, however reported reluctance to use any of the group identified strategies for improving personal accountability. Pt reported feeling that ?none of these are helpful for me?. Progress continues to be limited as pt struggles with engagement, as well as distorted thought patterns, and resistance in applying skills. Pt will continue IOP tx to prevent decompensation, further promote use of healthy change behaviors, and improve daily functioning. Narrative Note: []
== END 2020-03-09 23:59 ==
LOC: BHIOP 14:00
PROVIDERS: PCP Family Medicine; Referring Provider Psychiatry & Neurology Psychiatry; Visit Provider Psychiatry & Neurology Psychiatry
DX: F31.4 Bipolar disorder, current episode depressed, severe, without psychotic features (principal); F41.1 Generalized anxiety disorder; F43.10 Post-traumatic stress disorder, unspecified; F90.9 Attention-deficit hyperactivity disorder, unspecified type; F60.3 Borderline personality disorder; E66.9 Obesity, unspecified; J45.909 Unspecified asthma, uncomplicated; Z79.899 Other long term (current) drug therapy; Z91.5 Personal history of self-harm; Z62.810 Personal history of physical and sexual abuse in childhood
CPT/HCPCS: H0035; H2012; H2020; 90832; 90834; 90837

== ENCOUNTER 2020-03-13 09:00 | Outpatient (RCR) | payer MEDICAID, SELFPAY ==
--- NOTE | 2020-03-13 09:01 | BH.SGPN.GN ---
Behaviors/Verbalizations/Mental Status: []Client alert and oriented, casually dressed and groomed. Eye contact fair, at times closing her eyes as others shared. Motor activity appropriate. Speech within normal limits. Affect unable to gather due to wearing a mask for COVID-19 protocol, mood depressed and agitated. Thoughts linear, logical, no signs of hallucinations or delusions. Reviewed client?s symptom tracker, no risk for suicidal ideation, plan, or intent as of 03/13/20. Client Response/Progress/Benefit: [] Pt receptive to attending session, willing to process with the group however provided limited feedback throughout. Reports feeling mediocre today. Pt discussed struggling this morning to wake up after having a long weekend. She indicated spending time with her daughter for her daughter?s birthday and that this took up much of her time. Expressed that as a result she had been unable to accomplish her personal self-care goals. Pt went on to note difficulties in identifying self-care activities that she could engage in as she feels most are not effective for her. Pt appeared resistant to various suggestions provided by the group, often identifying reasons she believes the suggestions would not work. Pt continues to struggle with progress due to her ongoing resistance in skill application. Pt appeared to benefit from support of the group environment. Will continue IOP tx to increase utilization of emotion regulation skills, improve consistency, and prevent decompensation. Narrative Note: []
--- NOTE | 2020-03-15 08:55 | BH.TPR ---
Treatment Plan Review Date of Admission:: 02/16/20 Date of Treatment Plan Review:: 03/15/20 Admitting Diagnoses:: Persistent depressive disorder (F 34.1); cannot rule out bipolar, NOS; generalized anxiety disorder; PTSD; ADHD by history Current Diagnoses:: Persistent depressive disorder (F 34.1); cannot rule out bipolar, NOS; generalized anxiety disorder; PTSD; ADHD by history Patient's Response to Treatment:: Pt has been attending the IOP program consistently. Pt has cancelled attending a few times due to illness as well as difficulties in getting out of bed related to depressive symptoms. While in attendance, pt has remained a semi-active participant, though often reports resistance to applying the treatment materials discussed. Pt reports feeling these skills will not work for her which has also impacted willingness to apply some of the thought challenging, mindfulness, or behavior activation strategies discussed. Pt progress may be impacted as a result. Pt reports limited progress with decreased depressive and anxious symptoms as she continues to report current symptoms are impacting overall ability to function at baseline. Pt continues to report difficulties in utilization of skills due to apathy and limited motivation. Given ongoing mental health symptoms and limited progress, current plan is to continue pt in IOP tx to further promote healthy change behaviors and address barriers preventing progress. Treatment plan goals still left to accomplish Status of Current Problems and Symptoms: Pt continues to struggle with anxiety, low motivation and depression. This is likely being impacted by pt resistance to apply treatment materials and reports of limited ability to challenge negative thoughts outside of the treatment environment. Problem #1 Problem Name:: Depression Status of Goals:: Pt is making some limited progress on objectives 1 and 2. Obj 1- Able to identify some negative self-talk messages however struggles to replace these thoughts in session w/o guidance and often reports limited awareness outside treatment setting. Often struggles with emotional reasoning and limited use of self-reflection in the moment preventing her ability to effectively challenge negative thoughts. Obj 2- DSM 5 questionnaire completed at time of treatment progress indicates a reduction in depressive symptoms by 43%. However, pt self-report indicates continued difficulties in managing depressive sx. Pt states she still has depressed days and continues to struggle with getting out of bed but now has more motivation to begin adjusting these behaviors and applying skills to aid in breaking the cycle of depression. Team Recommendations:: Continue with IOP as she is beginning to respond more consistently to tx interventions. Plan to continue focusing on stress management skills and thought challenging. Problem #2 Problem Name:: Anxiety Status of Goals:: Obj1- Pt is able to identify some healthy coping skills to manage anxious symptoms, though struggles with believing that these skills will work for her specifically. Pt often expresses absolute thinking patterns in regard to mental health sx which may be having an impact on overall ability to see benefits and effectiveness of small steps when she is taking them. Could benefit from continuing thought challenge and positive self-coaching skills to further reinforce healthy coping skills. obj2- DSM 5 questionnaire completed at time of treatment progress review. Pt scores indicate an influx in anxiety related symptoms. 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 Pt does self-reports that these stressors are all positive events in her life, but that she is struggling with addressing the initial anxiety related to them. Would benefit from continued focus on positive self-talk and stress management techniques. Team Recommendations:: Continue with IOP as she is beginning to respond more consistently to tx interventions. Plan to continue focusing on stress management skills and thought challenging.
--- NOTE | 2020-03-15 10:10 | BH.SGPN.GN ---
Behaviors/Verbalizations/Mental Status: []Client alert and oriented, casual dress, hygiene tended to. Eye contact fair to good. Motor activity appropriate. Speech within normal limits. Affect unable to assess as pt wearing a mask per COVID-19 protocol, mood euthymic. Thoughts linear, logical, no signs of hallucinations or delusions. Client Response/Progress/Benefit: []Pt responded well to session and more actively engaged throughout. This was indicated by pt contributing to discussion, actively listening to others, and taking notes throughout. Pt appeared to connect well with topic of resilience and indicated that resilience means ?remembering that sometimes it is better to let go of the painful rather than keep hanging on?. Pt shared that this was something she recently has had to remind herself of regarding her own circumstances. She worked with the group to identify potential consequences of resisting rather than adapting when faced with trauma or adversity. Costs included: lashing out, increased depression and anxiety, panic, and a negative impact on overall ability to function. Pt reported that resistance has led to her lashing out on others in the past. Remained attentive during psychoeducation on various yousif factors in developing personal resilience. Pt actively contributed during small group discussion identifying benefits of each factor in fostering resilience. Pt seemed to benefit from increasing awareness of strategies to increase personal resilience and the impacts of resilience on managing mental health sx. Progress noted in pt improved mood and ability to more actively engage in session. Continues to struggle with boundary setting and use of emotional reasoning which creates difficulties in consistently managing emotions and may impact ongoing progress. Pt to continue IOP to improve use of healthy coping, continue to challenge distorted thoughts and improve use of healthy boundary setting, as well as prevent decompensation. Narrative Note: []
--- NOTE | 2020-03-15 11:09 | BH.SGPN.GN ---
Behaviors/Verbalizations/Mental Status: []Client alert and oriented, casually dressed and groomed. Eye contact good. Motor activity appropriate. Speech within normal limits. Affect unable to gather due to client wearing a mask for COVID-19 protocol, mood euthymic. Thoughts linear, logical, no signs of hallucinations or delusions. Client Response/Progress/Benefit: []Client engaged participant as evidenced by client providing input throughout discussion and listening attentively to peers. Client participated in the discussion of how each resiliency component can help increase personal resiliency. Client identified current resiliency traits she currently possesses and then identified what trait she would like to improve. Client reports belief she has been using the resiliency traits of making connections and accepting that change is a part of living. Client reported these traits have helped client adapt to hardships, give back to others, and feel involved. Client stated she would like to work on nurturing a positive view of self. Client identified strategies to help with this such as thought challenging, setting small goals, and positive affirmations. Client appeared to benefit from increasing insight to ways in which client can improve resilience to adversity and daily stressors. Client?s progress continues to be variable based on the day/week, but client is reporting an improved mood today. Will continue IOP to improve consistent mood stability and further increase the use of healthy coping skills. Narrative Note: []
--- NOTE | 2020-03-15 11:33 | BH.MDN ---
Multi-Disciplinary Note - Note 30-min Individual Date: 03/15/20 Purpose of session/treatment goals addressed:: Reviewed progress in IOP. Commended pt for areas of progress regarding self-care. Discussed skills she can use during an upcoming trip and addressed related stressors. Eye Contact:: Good Motor Activity:: Appropriate Appearance:: Casual Speech:: Pressured Mood:: Anxious Affect:: Congruent Thoughts:: Linear, Logical, Racing, No evidence of hallucinations/delusions noted Staff Interventions:: thought challenging, motivational interviewing, CBT techniques, goal setting Client Response:: Pt receptive of session, engaged and providing insight throughout. Pt reports being in a more positive mood today and attributes this to spending more time completing self-care than she had been in the past. Discussed that although she did not complete the exact self-care goal established in prior session, she did engage in some self-care activities. Reports spending time reading and with her daughter. Noted feeling her mood has improved as a result. Discussed a desire to see employment and share feeling uncertain what direction would be best for her. Remainder of session spent addressing current stressor. Pt shared plans to visit her father in [facility] and is uncertain about going as she has a trauma history involving her father. Discusses reasons for wanting to go on the trip and feeling guilty if she were to not go. Discussed pt?s right to set boundaries and reviewed skills she can use should she decide to continue with plans to go on the trip. Identified how pt can identify if she is becoming overwhelmed and reviewed ways to take a break by going for a walk, going in another room to read, ect. Discussed setting boundary of staying somewhere else to allow herself a break at the end of the day as as needed as well. Risks/Concerns:: No risks or concerns noted Progress Toward Goals/Plan:: Progress noted. Pt reports not reaching out to her which is significant progress in maintaining healthier boundaries. Additionally, identified several self-care activities she has engaged in. Continues to report difficulties with ruminating thoughts and struggling to manage her emotions at times, though overall notes improvements in these areas. Went on to indicate current stressor of potentially being in a triggering environment. Displays insight into potential impacts on her mental health, as well as skills she can use to best address this. Will continue IOP tx to further improve mood stability, continue to promote healthy change behaviors, and prevent decompensation.
--- NOTE | 2020-03-20 09:05 | BH.SGPN.GN ---
Behaviors/Verbalizations/Mental Status: []Client alert and oriented, casually dressed and groomed. Eye contact good. Motor activity appropriate. Speech within normal limits. Affect unable to gather due to wearing a mask for COVID-19 protocol, mood dysthymic and anxious. Thoughts linear, logical, no signs of hallucinations or delusions. Reviewed client?s symptom tracker, no risk for suicidal ideation, plan, or intent as of 03/20/20. Client Response/Progress/Benefit: []Pt responded well to session, engaged throughout and providing increased feedback to fellow participants compared to prior process groups. Reports feeling a mix of emotions today as she had received news that her father was diagnosed with cancer last week. Pt discussed going to visit with him and initially feeling overwhelmed and tempted to try and ?fix? everything around the house for him as a way to help. However, did well to recognize that this was only adding to her stress levels and instead took a step back to determine what her self-care needs were. Expressed taking time to sit outside and read which helped with coping throughout the visit. Pt went on to identify an additional win as stopping on her drive home to practice some deep breathing skills when feeling overwhelmed and call her mom on the phone for additional support. Expressed her father?s health and trying to figure out what her plans for her daughter?s return to school are as primary stressors. Noted that establishing a more consistent routine would aid in reducing overall stress. Progress noted in pt improved use of healthy coping skills and self-report of refraining from using sleep as primary means of managing her emotions. Will continue IOP tx to increase utilization of internal coping skills, improve emotion regulation, and prevent decompensation. Narrative Note: []
--- NOTE | 2020-03-20 10:20 | BH.SGPN.GN ---
Behaviors/Verbalizations/Mental Status: []Client alert and oriented, casually dressed. Eye contact fair. Motor activity appropriate. Speech within normal limits. Affect could not be assessed due to pt wearing a mask as a requirement during COVID-19 pandemic. mood dysthymic and anxious. Thoughts linear, logical, no signs of hallucinations or delusions. Client Response/Progress/Benefit: []Pt engaged participant AEB pt providing input throughout discussion, listened attentively to peers and completed worksheet. Group identified triggers of anger include: feeling disrespected by others, feeling overwhelmed, high expectations of self, overwhelming stress, and comparing self to others. Pt shared emotions that are underlying her anger include: lonely, anxious, loss, trauma, and lack of self-care. Pt identified the following as ways she expresses anger: pushing supports away, gaslighting others, passive-aggressive communication, defensive, crying, and purposefully mean to others. Pt seemed to benefit from increased awareness of how unmanaged anger can impact self and others. Progress noted with pt allowing herself to be vulnerable during session by sharing openly her thoughts and feelings with the group. Pt to continue IOP to increase consistent application of skills, improve ability to set and follow through with boundaries and prevent decompensation. Narrative Note: []
--- NOTE | 2020-03-20 11:34 | BH.MDN ---
Multi-Disciplinary Note - Note 30-min Individual Time Started:: 11:36 Date: 03/20/20 Purpose of session/treatment goals addressed:: The purpose of this session was to address client's current stressors, symptoms, and treatment goal progress. Another was to use a decisional balance technique to improve healthy decision making. Other topics included: thought challenging and boundary setting. Eye Contact:: Good, Other - tearful at times throughout Motor Activity:: Appropriate Appearance:: Casual Speech:: Appropriate Mood:: Anxious, Dysthymic Affect:: Other - unable to assess as pt wearing mask per COVID-19 protocol Staff Interventions:: Therapist used active listening and open-ended questions to explore client's current stressors, symptoms, and treatment goal progress. Therapist used a decisional balance exercise to help client make a well-balanced decision regarding managing current stressors and beginning new employment. Therapist assisted client in using behavior chain analysis to identify potential outcomes of decisions client is choosing between. Therapist also assisted client in identifying use of distortions and encouraged client to use self-compassion rather than having unrealistic expectations for self. Therapist gave client homework to review decisional balance sheet and reflect on which options would best promote mental health and wellness. Client Response:: Client responded well to session, open to meeting with therapist. Client shared she has been doing well with applying coping skills in the past week and feels especially proud of her ability to use skills while visiting her father in [facility] over the weekend. Client expressed that she had discovered her father was diagnosed with colon cancer the day she was leaving to visit him and that initially she struggled with emotion dysregulation and anxiety. Noted using skills of grounding, reading, and reaching out to supports. Additionally. discussed setting healthy boundaries with herself on how much she is able to help her father to prevent becoming overwhelmed and experiencing emotional burnout as a result. Client shared her biggest stressor right now is both a positive and a stressor as she was offered two different job and is in the process of deciding between the two. Shared on one hand client is feeling not ready to return to full-time employment because she is still working on improving her mental health and begins grad school part-time this month as well, but on the other hand has thoughts of Returning to work full-time is what I?m supposed to do?, ?I don?t want to rely on the government forever? and ?It will make me feel better if I choose a job more in my career field?. Client receptive to completing a decisional balance chart. 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 After further reflection, client recognized that she would benefit more from taking the part-time job given the current stressors on her plate and recent news of her father?s illness; however, continued to struggle with reluctance to commit to doing so. Noted, I just want to think about it a little more. Client's pros for staying off work included: time for self-care, continuing to work on her mental health, a less stressful environment, more time to complete her graduate program, and spending more time with her daughter. Client shared her main concern in taking the part-time position is that she will regret not doing something she feels more passionate about. Willing to work with therapist on challenging distortions and recognizing the the part-time position would be temporary until completing graduate school and able to take on a more stressful position. Additionally, client agreeable to reflect on decisional balance for homework. Risks/Concerns:: Client denies any suicidal ideations, plan, or intent as of 03/21/20. Client is future oriented and notes many protective factors. Progress Toward Goals/Plan:: Client has been responding well to treatment in the past week and is demonstrating increased progress towards her treatment goals AEB reduced ambivalence, report of improved motivation, and increased use of healthy coping skills rather than relying on sleep as a means of avoidance of stressors. Client has been using healthy coping skills including deep breathing, positive self-talk, taking breaks, and reaching out to supports. Client continues to struggle with poor boundaries, ruminations, crying spells, difficulties in managing her emotions, and inconsistent skill application. Client will continue IOP tx to promote use of healthy coping skills, improve work-related functioning, and reduce anxiety symptoms.
--- NOTE | 2020-03-27 08:46 | BH.IGGP_ITS ---
Aftercare Plan - Demographics Treatment End Date:: 03/27/20 Psychiatrist:: Sudha Silva Psychiatrist Office #:: [phone] [facility]/IOP Therapist:: Emiliana Wood Therapist Phone #:: [phone] - Medications Home Medications: Home Medications Atomoxetine HCl 25 mg PO DAILY 02/27/19 Buspirone HCl 10 mg PO BID 02/27/19 Divalproex (ER) [Depakote ER] 250 mg PO QHS 02/27/19 Hydroxyzine HCl 1 - 2 tab PO QHS 02/27/19 Lurasidone HCl [Latuda] 120 mg PO QHS 02/27/19 Norgestimate-Ethinyl Estradiol [Previfem] 1 tab PO DAILY 02/27/19 Prazosin HCl [Minipress] 4 mg PO QHS 02/27/19 - Plan Details Progress/Aftercare Plan Details:: ?You have shown a decrease in negative and self-sabotaging thoughts that have previously impacted your mood, motivation levels, and ability to effectively cope with depression. Catching and continuing to challenge these thoughts is going to be most important in your success moving forward. ?You have shown increased use of healthy boundary setting, especially while you transition from your most recent relationship. I know this has not been an easy transition and you should be proud of making the decision t o establish firmer boundaries both for yourself and your daughter. internal coping skills such as opposite action, self-compassion, practicing acceptance, and challenging yourself to use a more positive outlook daily. ?You have improved use of internal coping skills such as opposite action, positive self- talk, practicing acceptance, and challenging yourself to use a more positive outlook daily. This increase in self-care has shown to have a more positive impact on your overall mood and ability to manage stressors. ?Angle, you have also successfully been able to reach out to more healthy supports such as friends and family and challenge yourself to be more receptive of listening to the help and concerns voiced by them. ? In the past two weeks you have also increased engagement in healthy activities such as reading and sitting outside. You have also made progress in identifying and beginning to work towards prior meaningful goals for yourself, such as returning to work and school. Strategies for Success:: ?Opposite Action!!! ? do what will help you, even when your brain is saying don?t do it, even when it feels uncomfortable, even when you are tempted to take the easier or more comfortable way out. This especially comes into play when your brain is telling you to sleep rather than do the things you know will be healthy for you. ?Setting and following through with boundaries with yourself and others ? remember not to take on things that may be causing you unnecessary extra stress. Sometimes maintaining a boundary is hard and it hurts for a while ? remember, you created the boundary for a reason and there are consequences of not keeping it on both your mental health and functioning, as well as the mental health of those in your life. ?Continue to challenge negative thought patterns by trying to look at things from the other perspective, ask yourself ?Am I using a distortion?? or ?Is there another way to approach or think about this??. ?Keep reaching out to HEALTHY friends and supports! There are people who care and want to see you doing well! Remember, it?s okay to ask for help. We all need it from time to time. Remember, your supports are there for you to reach out to. ?Continue to make time for yourself! Self-care is yousif to maintaining progress and staying level! This includes sometimes doing those hard things that may require setting boundaries of using opposite action. Remind yourself you deserve to take time to care for you AND ASK YOURSELF ?What would I be losing if I didn?t do this for myself??. ?Small steps to physical, mental, and emotional wellness. Check-in with yourself regularly in order to identify what may be stressing you out, allow yourself to take small breaks if you find yourself getting overwhelmed. Don?t forget to keep setting SMART goals! - Appointments Appointments/Referrals to Other Services:: 1.Follow-up with [facility] for outpatient psychiatry. 2.Continue to go to outpatient counseling with [facility] until established with a more local agency, this is essential for ongoing progress. 3.Reach out to one of the agencies provided for ongoing outpatient counseling services.
--- NOTE | 2020-03-27 08:47 | BH.DS_ITS ---
Discharge Summary - Demographics Date of Admission:: 02/16/20 Discharge Date: 03/27/20 Presenting Problems at Admission:: The patient is a 29-year-old female with a history of PTSD, bipolar, depression, ADD and anxiety who referred herself to the [facility] IOP program following a suicide attempt on January 20, 2020. Pt reports at time of the attempt she had been struggling to cope with her indicating he wanted to end the marriage. Reports attempting to overdose on her psychiatric medications and then phoned her therapist after her prevented her from taking even more medication. The police and crisis came to her house, but pt was not taken to the emergency room and she was not admitted to any psychiatric unit. Denies current active SI, plan or intent. Denies self-harming. Denies HI. Denies delusions or hallucinations. Pt was previously admitted to IOP program in December 2018 for 1 day however did not complete the program. Reports current stressors impacting her mood and contributing to ongoing depressive sx include: the end of her marriage, finances, lack of employment, and managing her parenting responsibilities alone. Indicated current stressors have impacted ability to function at baseline. At time of admission, pt endorsing the following sx: hopelessness, sadness, apathy, anhedonia, decreased appetite, increased sleep, crying spells, low energy, reduced concentration, and increased negative thoughts. Discharge Diagnoses:: Persistent depressive disorder (F 34.1); cannot rule out bipolar, NOS; generalized anxiety disorder; PTSD; ADHD by history Reason for Discharge:: Pt has made some progress in treatment AEB reports of decreased depression, increased engagement in activities and successfully obtaining employment, as well as reports of improved boundaries. Reports that due to new employment schedule, pt is no longer able to attend IOP level of care on a consistent basis. Pt recommended to continue with counseling on an outpatient basis to maintain gains and prevent decompensation. - Treatment Progress During Treatment & Response: Progress variable throughout IOP tx. Pt struggled with consistent attendance and initially reported apathy about engaging in the treatment environment, expressing resistance to apply treatment materials to own life. However, after the mid-point review, pt was able to identify areas in which she could begin implementing thought challenging and opposite action skills to overcome barriers impeding tx progress. Pt was able to encourage herself to reduce use of sleep as an avoidance tool, improve engagement in activities she enjoys such as reading and spending time with her daughter, as well as secured employment. Pt delt with multiple stressors while in IOP tx and by the end of treatment did well to establish and begin maintaining better boundaries with her ex as well as other unhealthy supports, as well as use internal means of coping with identified stressors. Throughout IOP admission, pt maintained mostly consistent attendance, though initially struggled due to acting on urges to sleep rather than seek treatment. Additionally no called/no showed for last scheduled appointment. Engagement remained variable throughout depending on pt mood and external stressors. Issues Still to be Addressed:: Pt could benefit from continued focus on identifying and challenging distorted and negative thoughts. Pt seems to struggle with adjusting to changes and often becomes emotionally dysregulated when faced with potentially new or stressful situation, especially those related to interpersonal relationships. This sometimes results in pt looking for ways to avoid, becoming tearful, increased irritability, and self-sabotaging behaviors. Pt has struggled to maintain healthy boundaries with individuals self-identified as toxic to her mental health. Pt could benefit from increasing positive supports and continuing to work on healthy emotion regulation skills as well. Discharge Recommendations/Instructions:: 1.Follow-up with [facility] for outpatient psychiatry. 2.Continue to go to outpatient counseling with [facility] until established with a more local agency, this is essential for ongoing progress. 3.Reach out to one of the agencies provided for ongoing outpatient counseling services. Discharge Handout: Complete Discharge Handout with client on aftercare options and continuity of care.
== END 2020-03-27 15:47 | disposition home or self-care (01) ==
LOC: BHIOP 09:00
PROVIDERS: PCP Family Medicine; Referring Provider Psychiatry & Neurology Psychiatry; Visit Provider Psychiatry & Neurology Psychiatry
DX: F34.1 Dysthymic disorder (principal); F43.10 Post-traumatic stress disorder, unspecified; F41.1 Generalized anxiety disorder
CPT/HCPCS: H0035; H2012; 90832

== ENCOUNTER 2020-09-12 18:53 | Emergency (ER) | payer MEDICAID, SELFPAY ==
[2020-09-12 18:53] VITALS: BP 132/63; PULSE 91; RESP 20; TEMP 36.1; O2SAT 97; BMI 43.9
--- NOTE | 2020-09-12 19:22 | ED.DCSUM_ITS ---
History of Present Illness Chief Complaint: Abd Pain Narrative: This patient is a 30-year-old female who presents with worst GERD ever. She does have a history of reflux. Over the past week she reports similar but more severe symptoms. She complains of burning epigastric pain with radiation to her chest increased reflux/regurgitation as well as nausea and vomiting. No fevers. No diarrhea. Does have a history of C section no other abdominal surgeries. She takes no daily medications currently. Past Medical History - Allergies and Home Meds Allergies/Adverse Reactions: Allergies adhesive Allergy (Verified 09/12/20 18:55) Other Primary Care Physician: Damari Pabon MD [Primary Care Provider] - Past Medical History: None Surgical History: no surgical history Smoking Status: Never smoker Review of Systems All systems negative except as indicated General: Denies: Fever Eyes: Denies: Visual changes - bilaterally ENT: Denies: Bilateral ear pain Cardiovascular: Denies: Chest pain Respiratory: Denies: Dyspnea Gastrointestinal: Reports: Abdominal pain, Nausea, Vomiting. Denies: Diarrhea Musculoskeletal: Denies: Myalgias, Arthralgias Skin: Denies: Rash Neurological: Denies: Headache Hematologic: Denies: Easy bruising Allergy: Denies: Uticaria Physical Exam Vital Signs/Narrative: Vital Signs Temp Pulse Resp BP Pulse Ox 09/12/20 18:53 97.0 F L 91 20 H 132/63 H 97 Inital Vital Signs reviewed: Yes General: Well nourished Head: Normocephalic Eyes: EOMI ENT: Moist mucous membranes Neck: Supple Cardiovascular: Regular rate, Regular rhythm Respiratory: No distress, CTA bilaterally Abdomen: Soft, Nondistended, Tender - Epigastric abdominal tenderness without guarding without rebound. Negative for: Nontender, Guarding, Rebound tenderness Skin: Normal color Neurological: Alert Psychological: Normal affect Diagnostic/Tx/Re-eval Impressions Abdomen/Pelvis CT 09/12/20 20:19 IMPRESSION: Cholelithiasis without definitive evidence for acute cholecystitis. Ultrasound would be useful for further evaluation if clinically warranted Gastric distention with retained secretions consistent with nonspecific gastritis. Electronically Signed: Woo Dunn MD at 20:59 EST , Service support , 09/12/20 20:19 CT Abd [Abdomen/Pelvis without Cont] [CT] Stat Laboratory Results 09/12/20 09/12/20 09/12/20 19:30 19:30 19:30 WBC 10.2 RBC 4.40 Hgb 13.6 Hct 40.8 MCV 92.7 MCH 30.9 MCHC 33.3 RDW Std Deviation 41.1 RDW Coeff of Donald 12.0 Plt Count 318 MPV 9.9 Immature Gran % (Auto) 0.300 Neut % (Auto) 56.8 Lymph % (Auto) 33.4 Reynolds % (Auto) 6.1 Eos % (Auto) 2.7 Baso % (Auto) 0.7 Absolute Neuts (auto) 5.8 Absolute Lymphs (auto) 3.40 Nucleated RBC % 0 Sodium 139 Potassium 3.9 Chloride 107 Carbon Dioxide 28.0 Anion Gap 4 L BUN 15 Creatinine 0.82 Estim Creat Clear Calc 93.91 Est GFR (MDRD) Af Amer 105 Est GFR (MDRD) Non-Af 86 BUN/Creatinine Ratio 18.2 Glucose 87 Calcium 8.7 Total Bilirubin 0.90 AST 25 ALT 41 Alkaline Phosphatase 101 Total Protein 7.0 Albumin 3.4 Globulin 3.6 Albumin/Globulin Ratio 0.9 Lipase 95 Serum , Qual NEGATIVE - Medical Decision Making Patient's initial presentation was most suggestive of gastritis. She was given IV fluid and Zofran and then a GI cocktail. She states this did not help her symptoms. Therefore I did add on a CT of the abdomen and pelvis and also gave IV morphine. CT the abdomen pelvis shows cholelithiasis without evidence of acute cholecystitis as well as findings suggestive of gastritis. Her repeat abdominal exam is benign she does not have reproducible tenderness she is resting comfortably. She actually has a follow-up appointment scheduled with gastroenterology in a couple of days. We will start on Carafate and she was advised to follow-up as scheduled or return for new or worsening symptoms and was instructed on signs and symptoms to monitor for. Patient was discharged. ED Disposition - Plan for ED Patient: Disposition: Home or Assisted Living Diagnosis: Gastritis Instructions: ED Gastritis (Adult) Prescriptions: Sucralfate [Carafate] 1 gm PO 4X/DAY #120 tab Prescription Printed Referrals: Damari Pabon MD [Primary Care Provider] -
[2020-09-12] MEDS: Ondansetron 4 MG/2 ML Vial IV (19:34)
[2020-09-12] MEDS: Mag Hydrox/Al Hydrox/Simeth 30 ML UDC PO (19:37)
[2020-09-12] MEDS: 0.9% Normal Saline 1,000 ML 999 ML IV (19:39)
[2020-09-12 19:42] LABS: Absolute Neutrophil Count 5.8 X10^3/uL (2.0-7.7); Basophil# 0.07 X10^3/uL; Basophil% 0.7 % (0-1); Eosinophil# 0.28 X10^3/uL; Eosinophils% 2.7 % (0-5); Hematocrit 40.8 % (37-47); Hemoglobin 13.6 g/dL (12.0-15.0); Lymphocyte % 33.4 % (19-41); Mean Corp Hgb Conc 33.3 g/dL (32-36); Mean Corpuscular Hgb 30.9 pg (27.0-32.0); Mean Corpuscular Volume 92.7 fL (81-99); Mean Platelet Vol. 9.9 fl (6.2-12.0); Monocyte# 0.62 X10^3/uL; Monocyte% 6.1 % (0-10); NRBC Flagged by Analyzer 0 % (0-5); Neutrophil # 5.79 X10^3/uL (2.7-7.7); Neutrophil % 56.8 % (47-70); Platelet Count 318 K/mm3 (150-450); RBC Distribution Width SD 41.1 fl (35.1-43.9); White Blood Count 10.2 K/mm3 (4.4-11.0)
[2020-09-12 19:50] LABS: Internal QC Validated? YES +Cl - CLEAR BKGD
[2020-09-12 19:51] LABS: Pregnancy, Serum, hCG Quali. NEGATIVE Negative
[2020-09-12 19:59] LABS: ALB/GLOB Ratio 0.9 RATIO (0.9-2.4); AST(SGOT) 25 U/L (15-37); Alanine Aminotransfer ALT/SGPT 41 U/L (13-56); Albumin, Serum 3.4 g/dL (3.2-5.0); Alkaline Phosphatase 101 U/L (45-117); Anion Gap 4 (5-15); BUN 15 mg/dL (7-18); BUN/Creat Ratio 18.2 RATIO (10-20); Calcium,Total 8.7 mg/dL (8.5-10.1); Chloride 107 mmol/L (98-107); Creatinine, Serum 0.82 mg/dL (0.55-1.02); EST Glomerular Filtration Rate 86 mL/min (>60); Est Glom Filt Rate - Afr Amer 105 mL/min (>60); Estimated Creatinine Clearance 93.91 ml/min; Globulin 3.6 g/dL (2.2-4.2); Glucose 87 mg/dL (74-106); Lipase 95 U/L (73-393); Potassium 3.9 mmol/L (3.5-5.1); Sodium Level 139 mmol/L (136-145)
--- NOTE | 2020-09-12 20:19 | CT_ITS ---
STUDY: CT ABDOMEN AND PELVIS WITHOUT CONTRAST REASON FOR EXAM: Female, 30 years old. EPIGASTRIC PAIN WITH VOMITING X 1 WEEK RADIATION DOSAGE (If Supplied By Facility): CTDIvol = ( 22.00 ) mGy, DLP = ( 1104.64 ) mGycm TECHNIQUE: Transaxial images were obtained from the dome of the diaphragm to the symphysis pubis without oral contrast, and without intravenous contrast. Sagittal and coronal images were reconstructed. Individualized dose optimization techniques were used for this CT. COMPARISON: 1104.64. FINDINGS: The visualized lung bases are unremarkable. The visualized portions of the heart are within normal limits. There is elongation of the right lobe of the liver which is normal developmental variant. Liver is homogeneous attenuation without mass or bile duct dilatation.. Multiple calcified gallstones without evidence for acute pericholecystic edema. Normal spleen. Normal pancreas. Normal bilateral adrenal glands. Normal right kidney. Normal left kidney. Nonspecific gastric distention with retained secretions in the stomach.. Normal small intestine. Diffuse fecal retention is noted throughout the colon.. No evidence for acute appendicitis.. Normal abdominal aorta. Normal inferior vena cava. Normal retroperitoneum. Normal urinary bladder. Normal abdominal wall. Normal osseous structures. CT/Abdomen/Pelvis without Cont IMPRESSION: Cholelithiasis without definitive evidence for acute cholecystitis. Ultrasound would be useful for further evaluation if clinically warranted Gastric distention with retained secretions consistent with nonspecific gastritis. Electronically Signed: Woo Dunn MD at 20:59 EST , Service support ,
[2020-09-12] MEDS: Morphine 4 MG/ML Syringe IV (21:05)
[2020-09-12 21:52] VITALS: BP 115/72; PULSE 76; RESP 16; O2SAT 98
== END 2020-09-12 22:09 | disposition home or self-care (01) ==
PROVIDERS: Emergency Provider Emergency Medicine; PCP Family Medicine
DX: K29.70 Gastritis, unspecified, without bleeding (principal); K80.20 Calculus of gallbladder without cholecystitis without obstruction; K21.9 Gastro-esophageal reflux disease without esophagitis
CPT/HCPCS: 74176; 80053; 83690; 84703; 85025; 96361; 96374; 96375; 99283; J7030; A4216; J2405

== ENCOUNTER 2020-12-10 02:02 | Emergency (ER) | payer MEDICAID, SELFPAY ==
[2020-12-10 02:02] VITALS: BP 146/91; PULSE 94; RESP 16; TEMP 36.3; O2SAT 97; BMI 43.9
--- NOTE | 2020-12-10 02:10 | EX.ED.DYSGE1 ---
HPI History of Present Illness Chief Complaint: Abd Pain Narrative Narrative: Patient stated approximately 4 hours ago she developed left upper epigastric abdominal pain. She describes a sharp sensation. Associated nausea without vomiting. Normal bowel movements. She felt fine before this came on. She had [place] food prior to this happening. She has a history of GERD and gastritis and takes a PPI. Current severity is moderate. Hurts to push on it. She does have a history of gallstones recently diagnosed on a CAT scan from her previous visit this year for gastritis. She has not seen a surgeon for this. She denies any significant pain in the right upper abdomen. She took ibuprofen tonight with minimal relief. Worsened by nothing. Relieved by nothing. [facility] Medical History Anxiety Asthma Chronic headaches Depression Generalized anxiety disorder History of ADHD Migraines Persistent depressive disorder PTSD (post-traumatic stress disorder) Seasonal allergies Home Medications omeprazole 40 mg PO DAILY 12/10/20 [History Last Taken Unknown] Allergy/AdvReac Type Severity Reaction Status Date / Time adhesive Allergy Other Verified 12/10/20 02:05 Family History Mother Acute alcohol intoxication with alcoholism Brother Anxiety Social History Smoking Status: Never smoker alcohol intake: never substance use type: does not use what type of physical activity do you participate in: bicycling frequency: 3-4 times per week duration: 15-30 minutes/day ROS ROS ED ROS Narrative ROS General: Denies fever, chills, sweats Eyes: Denies visual changes, blurred vision, double vision ENT: Denies ear pain, rhinorrhea, sore throat Cardiovascular: Denies chest pain, palpitations, heart racing Respiratory: Denies dyspnea, cough, sputum, dyspnea on exertion, orthopnea,PND GI: See HPI : Denies dysuria, hematuria, frequency Musculoskeletal: Denies myalgias, arthralgias, neck pain, back pain Skin: Denies rash, abscess, abrasions Neuro: Denies headache, weakness, paresthesia Psych: Denies depression, anxiety Endo: Denies polyuria, polydipsia, polyphagia Heme: Denies easy bruising, easy bleeding, lymphadenopathy Allergy: Denies hives, swelling EXAM Physical Exam Narrative Exam Narrative: Vital signs reviewed General: Well-nourished well-developed Head: Normocephalic atraumatic Eyes: Pupils equal round and reactive to light extraocular movements intact ENT: TMs clear no hemotympanum no trauma Neck: Nontender full range of motion Cardiovascular: Regular rate rhythm no murmurs normal S1-S2 Respiratory: No distress clear to auscultation bilaterally chest nontender Abdomen: Soft tender left upper quadrant epigastric. No significant tenderness right upper quadrant. No Garcia sign. No guarding or rebound. Nondistended normal bowel sounds no masses Back: Nontender no CVA tenderness Extremities: Nontender active range of motion ?4 extremities no trauma Skin: Normal color no trauma Neuro alert oriented cranial nerves II through XII intact normal strength sensation reflexes Const Vital Signs: 12/10/20 02:02 Temperature 97.4 F L Temperature Source Temporal Pulse Rate 94 Respiratory Rate 16 Blood Pressure 146/91 H Blood Pressure Mean 109 Pulse Ox 97 Oxygen Delivery Method Nasal Cannula MDM MDM MDM Narrative Medical decision making narrative: IV established and given IV morphine Zofran and fluids. Lab work obtained. Lab work unremarkable including CBC BMP liver function test lipase and testing. On reevaluation she is resting comfortably pain resolved. I have a low suspicion this is gallbladder related. Is on the opposite side. This could be stomach related pain. I do not feel she needs a CT of her abdomen pelvis. I feel she can follow-up as an outpatient. Lab Data Labs: Laboratory Results - last 24 hr 12/10/20 12/10/20 12/10/20 02:25 02:25 02:25 WBC 9.8 RBC 4.45 Hgb 13.8 Hct 42.2 MCV 94.8 MCH 31.0 MCHC 32.7 RDW Std Deviation 43.4 RDW Coeff of Donald 12.5 Plt Count 256 MPV 9.9 Immature Gran % (Auto) 0.300 Neut % (Auto) 56.3 Lymph % (Auto) 31.8 [place] % (Auto) 6.2 Eos % (Auto) 4.7 Baso % (Auto) 0.7 Absolute Neuts (auto) 5.5 Absolute Lymphs (auto) 3.11 Nucleated RBC % 0 Sodium 139 Potassium 3.7 Chloride 106 Carbon Dioxide 27.0 Anion Gap 6 BUN 15 Creatinine 0.90 Estim Creat Clear Calc 85.56 Est GFR (MDRD) Af Amer 94 Est GFR (MDRD) Non-Af 78 BUN/Creatinine Ratio 16.7 Glucose 112 H Calcium 8.5 Total Bilirubin 0.90 AST 11 L ALT 23 Alkaline Phosphatase 84 Total Protein 7.1 Albumin 3.5 Globulin 3.6 Albumin/Globulin Ratio 1.0 Lipase 91 Serum , Qual NEGATIVE Discharge Plan Triage Chief Complaint: Abd Pain ED Provider: Erasmo Neri Dx/Rx/DC Orders Prescriptions: No Action omeprazole 40 mg Capsule,Delayed Release(Dr/Ec) 40 mg PO DAILY RF: 0 Primary Care Provider: Damari Pabon
[2020-12-10] MEDS: 0.9% Normal Saline 1,000 ML 1000 ML IV (02:23)
[2020-12-10] MEDS: Morphine 4 MG/ML Syringe IV (02:23)
[2020-12-10] MEDS: Ondansetron 4 MG/2 ML Vial IV (02:23)
[2020-12-10 02:31] LABS: Absolute Lymphocyte Count 3.11 X10^3/uL (0.83-4.51); Absolute Neutrophil Count 5.5 X10^3/uL (2.0-7.7); Basophil# 0.07 X10^3/uL; Basophil% 0.7 % (0-1); Eosinophil# 0.46 X10^3/uL; Eosinophils% 4.7 % (0-5); Hematocrit 42.2 % (37-47); Hemoglobin 13.8 g/dL (12.0-15.0); Lymphocyte # 3.11 X10^3/ul (0.83-4.51); Lymphocyte % 31.8 % (19-41); Mean Corp Hgb Conc 32.7 g/dL (32-36); Mean Corpuscular Volume 94.8 fL (81-99); Mean Platelet Vol. 9.9 fl (6.2-12.0); Monocyte# 0.61 X10^3/uL; Monocyte% 6.2 % (0-10); NRBC Flagged by Analyzer 0 % (0-5); Neutrophil # 5.51 X10^3/uL (2.7-7.7); Neutrophil % 56.3 % (47-70); Platelet Count 256 K/mm3 (150-450); RBC Distribution Width CV 12.5 % (11.6-14.6); RBC Distribution Width SD 43.4 fl (35.1-43.9); Red Blood Count 4.45 M/mm3 (4.2-5.4); White Blood Count 9.8 K/mm3 (4.4-11.0)
[2020-12-10 02:43] LABS: Internal QC Validated? YES +Cl - CLEAR BKGD; Pregnancy, Serum, hCG Quali. NEGATIVE Negative
[2020-12-10 02:47] LABS: AST(SGOT) 11 U/L (15-37); Alanine Aminotransfer ALT/SGPT 23 U/L (13-56); Albumin, Serum 3.5 g/dL (3.2-5.0); Alkaline Phosphatase 84 U/L (45-117); Anion Gap 6 (5-15); BUN 15 mg/dL (7-18); BUN/Creat Ratio 16.7 RATIO (10-20); Calcium,Total 8.5 mg/dL (8.5-10.1); Chloride 106 mmol/L (98-107); EST Glomerular Filtration Rate 78 mL/min (>60); Est Glom Filt Rate - Afr Amer 94 mL/min (>60); Estimated Creatinine Clearance 85.56 ml/min; Globulin 3.6 g/dL (2.2-4.2); Glucose 112 mg/dL (74-106); Lipase 91 U/L (73-393); Potassium 3.7 mmol/L (3.5-5.1); Protein, Total 7.1 g/dL (6.4-8.2); Sodium Level 139 mmol/L (136-145)
[2020-12-10 03:15] VITALS: BP 135/78; PULSE 82; RESP 16; O2SAT 99
== END 2020-12-10 03:16 | disposition home or self-care (01) ==
PROVIDERS: Emergency Provider Emergency Medicine; PCP Family Medicine
DX: R10.13 Epigastric pain (principal); R10.12 Left upper quadrant pain; K21.9 Gastro-esophageal reflux disease without esophagitis; K29.70 Gastritis, unspecified, without bleeding; K80.20 Calculus of gallbladder without cholecystitis without obstruction
CPT/HCPCS: 80053; 83690; 84703; 85025; 96361; 96374; 96375; 99283; J7030; A4216; J2405

== ENCOUNTER 2021-02-05 12:01 | Day surgery (SDC) | payer MEDICAID, SELFPAY ==
--- NOTE | 2021-02-04 11:26 | HP.PCM_ITS ---
History and Physical Date of Admission: 02/05/21 Angle Hirsch 1990 ? CC: abdominal pain? HPI: The patient is a 30 year old female presents with upper abdominal pain and found to have decreased gallbladder EF by HIDA scan. She also has accompanying symptoms of nausea and emesis. She notes bilateral upper abdominal pain, but right is greater than left. She was seen at [facility] ED on 12/12/2020. She is also noted to have eosinophilic esophagitis. She has known GERD ? HIDA scan 01/04/2021 Following stimulation there is partial emptying from the gallbladder with a calculated gallbladder ejection fraction of about 28% (normal > 35%). IMPRESSION: 1 Gallbladder is visualized. ?Patent cystic and common bile ducts. No scintigra phic evidence of acute cholecystitis. 2. Decreased Gallbladder ejection fraction suggestive chronic cholecystitis/gallbladder dyskinesia ? She has had her COVID vaccine. She denies TOB use. ? PAST MEDICAL HISTORY ? Asthma 1989 ? Eosinophilic esophagitis ? ? GERD (gastroesophageal reflux disease) ? ? Psychiatric disorder ? ? PTSD (post-traumatic stress disorder) ? PAST SURGICAL HISTORY ? SNGL ? 03/12/2013 ? EGD ? 09/25/2020 ? Grade A reflux esophagitis,Hiatal hernia ? INSERTION OF IUD ? 09/17/2020 ? Placed in office- Remove on 09/17/2026 ? REMOVE TONSILS AND ADENOIDS; AGE 12 OVER ? ? ? TONSILLECTOMY HX ? Current Outpatient Medications ? busPIRone (BUSPAR) 15 mg tablet take 1/2 tablet by mouth twice a day for 2 weeks then 1 tablet by mouth twice a day ? Erythromycin-Benzoyl Peroxide gel APPLY TO THE AFFECTED AREAS UNDER THE BREASTS 2 TIMES EVERY DAY ? methylphenidate (RITALIN) 10 mg tablet ? ? spironolactone (ALDACTONE) 100 mg tablet TAKE 1 TABLET BY MOUTH AT THE SAME TIME EVERY DAY WITH A FULL GLASS OF WATER ? VRAYLAR 3 mg capsule ? ? prazosin (MINIPRESS) 2 mg cap ? ? prazosin (MINIPRESS) 1 mg cap Take 1 mg by mouth twice daily. ? hyoscyamine sublingual (LEVSIN/SL) 0.125 mg Dissolve 1 tablet under the tongue every 4 hours as needed. ? levonorgestrel (MIRENA) 20 mcg/24 hours (6 yrs) 52 mg IUD 1 Each by INTRAUTERINE route one time only. ? omeprazole (PRILOSEC) 40 mg capsule Take 1 capsule by mouth once daily. ALLERGIES: Adhesive Tape (Rosins) ? PERSONAL HISTORY: ? Smoking status: Never Smoker ? Smokeless tobacco: Never Used Vaping Use ? Vaping Use: Never used Substance Use Topics ? Alcohol use: No ? Drug use: Yes ? ? Frequency: 7.0 times per week ? ? Types: Marijuana ? ? Comment: daily use, not used in 4 days FAMILY HISTORY ? None Mother ? ? Colon Cancer Father ? The review of systems data was entered by the nurse and reviewed by me ? Nursing Notes: Niki Causey LPN 01/21/2021 2:13 PM Signed REVIEW OF SYSTEMS: General: The patient denies fatigue, denies weight loss, denies weight gain, denies feeling hot, and denies feelings of cold. Eyes: The patient denies glaucoma, denies eye injury/surgery, does not wea r glasses or contacts. Ear/Nose/Throat: The patient denies allergies, denies hayfever, denies ear infections, and denies bloody noses. Cardiovascular: The patient denies chest pain, denies heart disease, denies high blood pressure,denies cardiac stent, denies prior heart attack, denies irregular heart beat, denies high cholesterol, denies poor circulation, denies heart failure, other cardiac issues, denies claudication, denies cold feet, denies peripheral arterial stent. Respiratory: The patient denies tuberculosis, denies pneumonia, denies frequent cough, denies pulmonary embolism, denies shortness of breath, and denies coughing up blood. Gastrointestinal: The patient denies difficulty swallowing, NOTES acid reflux, denies ulcers, denies vomiting, denies jaundice/hepatitis, NOTES gallbladder problems, denies black or tarry stools, denies hemorrhoids, denies bleeding from rectum, denies diverticulitis, denies constipation, NOTES diarrhea, denies loss of stool control, and denies hernias. Kidney/Bladder: The patient denies kidney stones, denies urine infections, and denies bloody urine. Skin: The patient denies a history of skin cancer, denies bleeding/changing moles, and denies a history of skin rash. Neurologic: The patient denies a history of epilepsy/convulsions, denies headaches, denies head/spinal injuries, and denies stroke/TIA. Psychiatric: The patient denies psychiatric medications, NOTES depression, and denies voices, denies substance abuse. Endocrine: The patient denies thyroid disorders, denies diabetes, and denies hormonal problems. Hematologic: The patient denies a history of bruising, denies bleeding, and denies anemia, denies blood clots. Infections: The patient denies a history of measles and mumps, denies rheumatic fever, and denies sexually transmitted diseases. Musculoskeletal: The patient denies back pain/injury, denies back problems, denies sciatica, denies knee/foot trouble, denies arthritis, or denies gout. When was patient's last Mammogram screening? N/A Last Colonoscopy: N/A Niki Causey LPN ? PHYSICAL EXAMINATION: General: The patient is 30 year old female, well nourished, well hydrated in no acute distress. The patient is oriented to time, place, and person. VITALS: Blood pressure 112/78, pulse 100, temperature 37.5 ?C (99.5 ?F), height 167.6 cm (5' 6), weight 122.5 kg (270 lb), last menstrual period 09/10/2020, SpO2 96 %. Body mass index is 43.58 kg/m?. Head ? Normocephalic. EOM intact with sclera clear and no icterus noted. Neck - supple with no jugular venous distention noted. Trachea is midline. Lungs ? clear to auscultation. Normal breath sounds. No rales/rhonchi/wheezing noted. No labored breathing noted, such as retractions. No cough heard. Heart ? normal S1 and S2 auscultated. No rubs/clicks/murmurs noted. Regular rate. Abdomen ? soft and benign but tender RUQ abdomen - no peritoneal signs. Normal bowel sounds. Difficult to determine if any masses or organomegaly due to body habitus. Extremities ? no calf tenderness noted. No pitting edema noted. Skin ? normal skin integrity. Neurological ? gait normal, no focal deficits noted. Psych ? calm and appropriate ? RADIOLOGIC STUDIES: As Noted ? IMPRESSION: RUQ abdominal pain, biliary dyskinesia by HIDA scan ? PLAN: I have discussed the above with the patient. I have offered laparoscopic cholecystectomy, possible cholangiograms I have explained the procedure to the patient. I have counseled the patient as to the risks of the procedure, including but not limited to: infection, bleeding, injury to any blood vessels/nerves, scar tissue, injury to any intrabdominal organs, injury to bowel/bladder, injury to the common bile duct/biliary tree, bile leakage, intraabdominal abscess/bleeding, hernias at incisional sites, wound infections, complications of anesthesia, etc. ? the patient understands. ? The patient was offered a surgery/procedure at a [facility]. The provider and patient have discussed in detail the risk of exposure to and/or potential harm posed by the COVID-19 virus with having a surgery/procedure at this time versus the risk of? delaying the surgery/procedure. It is not possible to know either the risk of delaying the surgery or procedure or chance of getting an infection with perfect accuracy, but a joint decision was made between the patient and the provider ?to proceed at this time with the scheduled surgery/procedure. Scheduled at [facility] on February 05 as per patient. ? The patient wishes to proceed. I have answered all questions to the patient?s satisfaction and the patient has no further questions. ? ? ? Brianna Lawler MD
[2021-02-05] VITALS (9 sets, daily range): BP systolic 113–130; BP diastolic 65–80; PULSE 65–84; RESP 16–18; TEMP 36.2–37.3; O2SAT 97–100; BMI 43.0
--- NOTE | 2021-02-05 | GALL_PTH ---
PATIENT: ARELY PANDYA LOC: [facility] U#:[id number] AGE/SX: 30/F ROOM: RE02/05/[address]: Dr. Brianna Lawler MD : 1990 BED: DIS: 02/05/2021 SPEC #: [id number] RECD: 02/05/21 15:35 STATUS: KERRY REIker #: [id number] ARIE: 02/05/21 00:[address]: Brianna Lawler DEPT: SURGICAL PATHOLOGY RECD BY: Iron Rajan ENTERED: 02/06/21 07:51 SP TYPE: KENNEDI ALMARAZ DR: Dr. Damari Pabon MD Tissues: Gallbladder, NOS Procedures: Surgery Specimen Level III HEADER OPERATION: Laparoscopic cholecystectomy with IOC PRE-OP DIAGNOSIS: RUQ abdominal pain, abnormal HIDA scan TISSUE SUBMITTED: Gallbladder MICROSCOPIC DIAGNOSIS Gallbladder, cholecystectomy: Chronic cholecystitis and cholelithiasis. Benign pericystic lymph node. AM:yadira 02/07/2021 MICROSCOPIC DESCRIPTION Slides are reviewed. GROSS DESCRIPTION Received is one container labeled with the patient's name and designated gallbladder. The specimen consists of a gallbladder measuring 7 cm in length and up to 3 cm in diameter. The external surface is pink-mcgrath, smooth and glistening for the most part. Focally it is granular, hemorrhagic and contains cautery artifact. The gallbladder contains a small amount of green-yellow mucoid bile and multiple ovoid, greenish-brown, friable stones and stone fragments measuring in aggregate 4.5 x 3 x 1.5 cm and 0.3 to 2 cm in greatest dimension. The mucosa is bile-stained and without any mass lesions. The gallbladder wall measures up to 0.3 cm in thickness. Close to the cystic duct is an ovoid nodule, a possible lymph node, measuring 1 cm in greatest dimension. Car Deliverer sections from the gallbladder and the cystic duct including entire lymph node are submitted in one cassette. / SJ:yadira 02/06/21 TC:3 CPT: 47489
--- NOTE | 2021-02-05 12:16 | EKG12_ITS ---
Test Reason : PRE-OP Blood Pressure : / mmHG Vent. Rate : 069 BPM Atrial Rate : 069 BPM P-R Int : 270 ms QRS Dur : 080 ms QT Int : 400 ms P-R-T Axes : 040 045 038 degrees QTc Int : 428 ms Sinus rhythm with 1st degree A-V block Otherwise normal ECG Confirmed by BINH KAMARA, ROSEY ([id number]), design editor PASTOR YOON ([id number]) on 02/13/2021 2:14:26 PM Referred By: Brianna Lawler Confirmed By:ROSEY PURCELL MD
[2021-02-05 12:27] LABS: Internal QC Validated? YES +Cl - CLEAR BKGD; Pregnancy, Urine Negative Negative
[2021-02-05] MEDS: Lactated Ringers 1,000 ML 75 ML IV ×2 (12:41→16:38)
--- NOTE | 2021-02-05 13:45 | PCM.OPRPT ---
Report of Operation Date of Procedure: 02/05/21 Pre-Operative Diagnosis: RUQ abdominal pain, abnormal HIDA scan Post-Operative Diagnosis: RUQ abdominal pain, abnormal HIDA scan, cholelithiasis Surgery/Procedure Performed:: laparoscopic cholecystectomy with cholangiograms Description of Surgical Findings:: normal IOC, gallstones noted Surgeon: Brianna Lawler glue jointer feeder: Chelsy Clemente Type of Anesthesia: General Anesthesiologist: Fred Serna Specimen's removed: gallbladder and contents Estimated Blood Loss (mL): < 10 ml Fluids Replaced: 1500 ml RL Description of Procedure: After informed consent was given, the patient was brought to the Operating Room. Appropriate time out protocol was followed. The patient was placed in the supine position. The patient was then placed under general endotracheal anesthesia by the anesthesia provider. The abdomen was then prepped with a sterile surgical skin preparation and sterile surgical drapes were placed. An area superior to the umbilical dimple was grasped with penetrating clamps and the skin and subcutaneous tissues were infiltrated with 0.25% marcaine with epinephrine. A skin incision was then made with a 15 blade scalpel. The anterior abdominal wall was elevated and a Veress needle was carefully inserted into the intraabdominal cavity. It was checked to be in the proper position with a normal saline drop test. A CO2 pneumoperitoneum was then created. Once this was achieved, then the Veress needle was removed and an 11mm trocar was placed in its stead. A 10mm laparoscope was then inserted into the trocar and careful attention was directed to the intraabdominal contents. There was no evidence of injury to any intraabdominal organs from insertion of the Veress needle or the trocar. Under direct visualization, a 5mm subxiphoid trocar and two lateral 5mm right subcostal trocars were placed. The skin and subcutaneous tissues at these sites were infiltrated with 0.25% marcaine with epinephrine prior to placement of these trocars. Attention was then directed to the right upper quadrant of the abdomen. Graspers were placed in the lateral trocars to grasp the distal aspect of the gallbladder and direct it cephalad and to grasp the gallbladder at Martinez?s pouch and direct it laterally. Dissection then began on the proximal gallbladder continuing down to the area of the triangle of Calot to bluntly dissect out the cystic duct. The neck of the gallbladder was identified and blunt dissection continued to dissect out a segment of the cystic duct. A clip was then placed on the neck of the gallbladder. A small ductotomy was then made. A Ranfac catheter was brought in through a separate skin incision and placed into the cystic duct. An intraoperative cholangiogram was performed under fluoroscopy. The xray revealed no lesions in the common bile duct, arborization of the biliary tree, and good flow into the duodenum. The Ranfac catheter was then removed and two clips were placed proximal to the ductotomy and the cystic duct was then transected. The cystic artery was visualized and bluntly isolated and then two clips were placed proximally and one clip distally and then it was transected between the proximal and distal clips. The gallbladder was then from the liver bed using electrocautery. Once from the liver bed, it was brought out via the umbilical port in an Endobag. It was then forwarded to pathology for analysis. The liver bed was carefully examined. There was no evidence of bile leakage or bleeding. The cystic duct stump and cystic artery stump had their clips intact and there was no evidence of bile leakage or bleeding. The remainder of the abdomen was grossly normal. The CO2 was released and all trocars removed intact. The periumbilical fascia was approximated with a [id number] 0 vicryl suture. All skin incision were closed with 4-0 monocryl in a subdermal fashion. Cavilol and Steristrips were used to reinforce the skin closure. Sterile dressings were applied to all wounds. Sponge, needle and instrument count was verified and correct at time of skin closure. The patient was extubated and brought to the Recovery Room in stable condition. Complications none noted Admit VTE Documentation VTE Present on Admission: Yes VTE Mechan Device Prophylaxis: SCD's
--- NOTE | 2021-02-05 13:50 | RAD_ITS ---
CLINICAL HISTORY: Female, 30 years old. Abdominal pain PROCEDURE: CHOLANGIOGRAM - intraoperative FLUOROSCOPY TIME (if supplied): (0:01) minutes/seconds TECHNIQUE: (All elements of maximal sterile barrier technique followed, including US elements as applicable) 1 seconds fluoroscopy of the abdomen was utilized and operating room during intraoperative plain foramina single image is made of for interpretation. Next FINDINGS: A cannula seen in the cystic duct remnant. No filling defect is seen within the common bile duct to suggest stone. There is spillage of contrast through the ampulla into the duodenum. RAD/Cholangiogram/ O R,Initial IMPRESSION: No common bile duct stone. Electronically Signed: Vishal Espinosa MD at 15:39 EDT Tel , Service support ,
--- NOTE | 2021-02-05 15:21 | EX.PCM.DISCH ---
Discharge Instructions Follow Up Care Test Results: Test results from this visit will be discussed in further detail at your follow-up appointment, if applicable. Discharge Plan Admission Attending Provider: Brianna Lawler Primary Care Provider: Damari Pabon Instructions Additional Instructions / Restrictions: Recommended pain control regimen - May take 600 mg ibuprofen (Motrin) and then in 3-4 hours, may take 650 mg acetaminophen (Tylenol), then in 3-4 hours may take 600 mg ibuprofen, then in 3-4 hours may take 650 mg acetaminophen and so on for 2-3 days May take narcotic pain medication for pain that is not controlled by above and at night for comfort through the night Leave dressings in place May shower, do not scrub in the areas of the dressings as they may unravel. If they become overly soiled you may remove them but leave incision site open to air. Do not soak - no tub baths/swimming Ice applied to areas of discomfort may help No lifting/pushing/pulling greater than 20 pounds for two weeks. Regular diet as tolerated, drink plenty of fluids. Avoid carbonated beverages for a few days as this will cause abdominal bloating and thus discomfort after our surgery. Please call my office for an appointment to see me in 1-2 weeks. Office number is If any questions, please call my office at and ask the machine operator hay stacker for the general surgery nurses desk Discharge Orders/Prescriptions Prescriptions: New hydrocodone-acetaminophen 5-325 mg tablet 1 tab PO Q8H 5 Days Qty: 15 RF: 0 No Action omeprazole 40 mg Capsule,Delayed Release(Dr/Ec) 40 mg PO QHS RF: 0 methylphenidate HCl [Ritalin] 10 mg Tablet 10 mg PO PRN PRN (Reason: adhd) RF: 0 prazosin 1 mg Capsule 3 mg PO QHS RF: 0 spironolactone [Aldactone] 100 mg Tablet 100 mg PO QHS RF: 0 albuterol sulfate 90 mcg/actuation Hfa Aerosol Inhaler 1 inh INHALATION Q6H PRN (Reason: sob) RF: 0 buspirone [BuSpar] 15 mg Tablet 30 mg PO QHS RF: 0 Vraylar 3 mg Capsule 3 mg PO QHS RF: 0 Referrals / Follow Up: Damari Pabon MD [Primary Care Provider] - Disposition Disposition (needs filled in before D/C Order can be placed): Home, Self Care
== END 2021-02-05 17:38 ==
LOC: SDC 12:02 → AC 12:04
PROVIDERS: Anesthesiology; PCP Family Medicine; Referring Provider Surgery; Visit Provider Surgery
PROC: (CPT 47610; principal; 2021-02-05 13:30)
DX: K80.10 Calculus of gallbladder with chronic cholecystitis without obstruction (principal); K21.9 Gastro-esophageal reflux disease without esophagitis; J45.909 Unspecified asthma, uncomplicated; F43.10 Post-traumatic stress disorder, unspecified; F41.9 Anxiety disorder, unspecified; F32.9 Major depressive disorder, single episode, unspecified; G43.909 Migraine, unspecified, not intractable, without status migrainosus; Z79.899 Other long term (current) drug therapy
CPT/HCPCS: 47563; 74300; 76000; 81025; 88304; 93005; J7120; J2405